=== PATIENT | male | born 1970 | race Caucasian/White ===

== ENCOUNTER → 2019-02-18 10:09 | Outpatient (CLI) | payer OTHER, SELFPAY ==
[2019-02-18 10:37] LABS: Add Manual Diff / Slide Review NO; Basophils Absolute Auto 100 /uL (0-100); Basophils Percent Auto 1.4 % (0-2); Eosinophils Absolute Auto 200 /uL (0-450); Eosinophils Percent Auto 3.3 % (2-4); Hematocrit 43.3 % (41-53); Lymphocytes Absolute Auto 2100 /uL (1100-4500); Lymphocytes Percent Auto 43.1 % (25-40); Mean Corpuscular HGB Conc 34.6 % (30-36); Mean Corpuscular Hemoglobin 31.4 PG (26-34); Monocytes Absolute Auto 400 /uL (0-900); Monocytes Percent Auto 8.8 % (3-14); Neutrophils Absolute Auto 2200 /uL (1500-7000); Neutrophils Percent Auto 43.4 % (50-75); Platelet Count 226 X10^3/uL (150-400); Red Blood Cell Count 4.76 X10^6/uL (4.5-5.9); Red Cell Distribution Width 13.8 % (11.6-14.8)
[2019-02-18 10:41] LABS: UR Morphine/Opiate cutoff 300 Negative (Negative); Ur Creatinine Normal (Normal); Ur Specific Gravity Normal (Normal); Urine Amphetamines Negative (Negative); Urine Barbiturates Negative (Negative); Urine Benzodiazepines Negative (Negative); Urine Cocaine Negative (Negative); Urine MDMA Negative (Negative); Urine Methadone Negative (Negative); Urine Methamphetamines Negative (Negative); Urine Oxycodone Negative (Negative); Urine Phencyclidine Negative (Negative); Urine Tetrahydrocannabinol Negative (Negative); Urine Tricyclic Antidepressant Negative (Negative); Urine pH Normal (Normal)
[2019-02-18 11:06] LABS: Alanine Aminotransferase 68 IU/L (<50); Albumin Globulin Ratio 1.9 (1.0-2.8); Alkaline Phosphatase 96 U/L (38-126); Aspartate Aminotransferase 36 IU/L (17-59); BUN Creatinine Ratio 23.3 (6-22); Bilirubin Total 0.7 mg/dL (0.2-1.3); Bilirubin Unconjugated 0.4 mg/dL (0.0-1.1); Blood Urea Nitrogen 21 mg/dL (9-20); Calcium 9.9 mg/dL (8.4-10.2); Carbon Dioxide 28 mmol/L (22-32); Chloride 102 mmol/L (98-107); Cholesterol 249 mg/dL (140-199); Estimated Glomerular Filt Rate > 60.0 mL/min (>60); Globulin 2.6 g/dL (1.7-4.1); Glucose 92 mg/dL (70-100); HDL Cholesterol 57 mg/dL (40-60); HEMOLYSIS < 15 (0-50); LDL Cholesterol Calculated 177 mg/dL (<100); Potassium 5.3 mmol/L (3.4-5.1); Sodium 141 mmol/L (137-145); Total Protein 7.6 g/dL (6.3-8.2); Triglycerides 73 mg/dL (35-150)
[2019-02-18 11:21] LABS: Free T4, Direct Thyroxine 0.91 ng/dL (0.78-2.19)
[2019-02-18 11:35] LABS: Thyroid Stimulating Hormone 1.15 uIU/mL (0.47-4.68)
== END ==
PROVIDERS: Visit Provider Psychiatry & Neurology Psychiatry
DX: F31.9 Bipolar disorder, unspecified (principal)
CPT/HCPCS: 36415; 80053; 80061; 80076; 80305; 84439; 84443; 85025

== ENCOUNTER → 2019-03-11 09:13 | Outpatient (CLI) | payer OTHER, MEDICAID, SELFPAY ==
[2019-03-11 11:18] LABS: BUN Creatinine Ratio 11.7 (6-22); Blood Urea Nitrogen 14 mg/dL (9-20); Calcium 9.6 mg/dL (8.4-10.2); Carbon Dioxide 29 mmol/L (22-32); Chloride 101 mmol/L (98-107); Estimated Glomerular Filt Rate > 60.0 mL/min (>60); Glucose 102 mg/dL (70-100); HEMOLYSIS < 15 (0-50); Potassium 4.5 mmol/L (3.4-5.1); Sodium 139 mmol/L (137-145)
[2019-03-11 11:35] LABS: Lithium < 0.2 mmol/L (0.6-1.2)
== END ==
PROVIDERS: PCP Student in an Organized Health Care Education/Training Program; Visit Provider Psychiatry & Neurology Psychiatry
DX: F31.30 Bipolar disorder, current episode depressed, mild or moderate severity, unspecified (principal)
CPT/HCPCS: 36415; 80048; 80178

== ENCOUNTER → 2019-05-15 15:24 | Outpatient (CLI) | payer OTHER, MEDICAID, SELFPAY ==
[2019-05-15 16:19] LABS: Blood Urea Nitrogen 15 mg/dL (9-20); Calcium 9.6 mg/dL (8.4-10.2); Carbon Dioxide 27 mmol/L (22-32); Chloride 103 mmol/L (98-107); Estimated Glomerular Filt Rate > 60.0 mL/min (>60); Glucose 92 mg/dL (70-100); HEMOLYSIS < 15 (0-50); Potassium 3.9 mmol/L (3.4-5.1); Sodium 140 mmol/L (137-145)
[2019-05-15 16:35] LABS: Lithium 0.2 mmol/L (0.6-1.2)
== END ==
PROVIDERS: PCP Student in an Organized Health Care Education/Training Program; Referring Provider Psychiatry & Neurology Psychiatry; Visit Provider Psychiatry & Neurology Psychiatry
DX: F31.30 Bipolar disorder, current episode depressed, mild or moderate severity, unspecified (principal)
CPT/HCPCS: 36415; 80048; 80178

== ENCOUNTER 2021-04-18 13:04 | Emergency (ER) | payer OTHER, MEDICAID, SELFPAY ==
[2021-04-18] VITALS (161 sets, daily range): BP systolic 55–147; BP diastolic 33–90; PULSE 62–104; RESP 6–27; TEMP 36–36.2; O2SAT 86–100; BMI 31.4
--- NOTE | 2021-04-18 13:20 | DI.RAD.S_ITS ---
PROCEDURE: XR CHEST 1V INDICATIONS: Altered mental status TECHNIQUE: One view of the chest was acquired. COMPARISON: None. FINDINGS: Surgical changes and devices: None. Lungs and pleura: Lungs are clear. No pleural effusions or pneumothorax. Mediastinum: Mediastinal contours appear normal. Heart size is normal. Bones and chest wall: No suspicious bony lesions. Overlying soft tissues appear unremarkable. IMPRESSION: No acute cardiopulmonary process demonstrated radiographically. Dictated by: Bran Martino M.D. on 04/18/2021 at 13:55 Approved by: Bran Martino M.D. on 04/18/2021 at 13:55
--- NOTE | 2021-04-18 13:21 | ED.AMS ---
HPI - Altered Mental Status <Janny Kellogg, DO - Last Filed: 04/21/21 13:13> General Chief Complaint: Altered Mental Status Stated Complaint: Found down Time Seen by Provider: 04/18/21 13:17 Source: EMS and old records reviewed Mode of arrival: EMS Limitations: altered mental status History of Present Illness HPI narrative: This is a 50-year-old male comes emergency department found down at his home. EMS was called contacted after well for check as patient had shown up for work for 4 days. Patient patient was found somnolent with agonal respirations. He received Narcan which had immediate improvement but not complete normalization of his mental status. He received an additional dose had a mild improvement. He has continued to be altered he will sometimes answer appropriately but other times is nonsensical. He was requiring O2 intermittently. Patient had 1 low blood pressure of 108. They do not have any medical history available. [place] and there were other individuals present who for milieu with him and states that he may have some drug history but they were unsure. Patient stated to the medics that he buys Percocet off the street and he had been taking this. He has home medications including aripiprazole, diazepam, trazodone, sertraline, propranolol and Adderall in their bottles and were brought with the patient. It is also noted that patient has a cocaine anonymous Flyer in his wallet. Patient himself is not really able to answer any questions he is not aware where he is. He does have a visit from February of 2021 with psychiatry which notes a history of bipolar disorder, panic disorder polysubstance for dependence currently in remission and attention deficit hyperactivity disorder. Related Data Home Medications Medication Instructions Recorded Confirmed aripiprazole 10 mg tablet 15 mg PO BEDTIME 04/18/21 04/18/21 naproxen 500 mg tablet 500 mg PO BID 04/18/21 04/18/21 tadalafil 10 mg tablet 10 mg PO DAILY PRN 04/18/21 04/18/21 Previous Rx's Medication Instructions Recorded trazodone 50 mg tablet 100 mg PO BEDTIME PRN #180 tab 08/05/20 propranolol 20 mg tablet 20 mg PO TID #90 tab 09/13/20 sertraline 100 mg tablet 150 mg PO DAILY #135 tab 03/01/21 dextroamphetamine-amphetamine 30 30 mg PO BID #60 tab 03/02/ mg tablet Allergies Allergy/AdvReac Type Severity Reaction Status Date / Time No Known Drug Allergies Allergy Verified 04/18/21 13:22 Review of Systems <Janny Kellogg DO - Last Filed: 04/21/21 13:13> Review of Systems ROS Unobtainable: All systems reviewed & are unremarkable except as noted in HPI and below Patient History <Janny Kellogg DO - Last Filed: 04/21/21 13:13> Medical History Attention deficit disorder predominant inattentive type Bipolar disorder current episode depressed Panic disorder with agoraphobia Substance use disorder Social History Smoking Status: Current every day smoker (vaping/quit cigarettes) Smoking Status: Current every day smoker (vaping/quit cigarettes) Exam <Janny Kellogg DO - Last Filed: 04/21/21 13:13> Narrative Exam Narrative: GEN: Male, alert, moaning patient appears to be in moderate distress. Patient does not follow commands. He does try to respond to questions but does not make sense. HEENT: Atraumatic, pupils are equal round reactive to light, extraocular movements are intact, nares are clear, TMs are clear with no fluid, there is no conjunctival pallor. Throat is clear without any exudates, erythema, tonsillar enlargement or uvular deviation, no facial droop. HEART: Regular rate and rhythm without murmur, clicks, rubs. Pulses are equal in upper and lower extremities LUNGS:Lungs clear to auscultation, no wheezes, rales, crackles, chest moves symmetrically ABD:bowel sounds normal, soft, non-tender, no guarding, rebound, rigidity, no masses noted, no hepatosplenomegaly :No CVA tenderness BACK: No cervical, thoracic or lumbar vertebral point tenderness. Patient does not participate in exam. MSCL: Non-tender, no muscle atrophy NEURO:CN 2-12 intact, sensation normal, reflexes 2/4 upper and lower extremities. SKIN: Patient has some erythema of the buttocks but no skin breakdown. No other skin changes appreciated other some erythema on the dorsum of the foot. Initial Vital Signs Initial Vital Signs: Vital Signs Temperature 97.1 F L 04/18/21 13:10 Pulse Rate 91 H 04/18/21 13:10 Respiratory Rate 24 04/18/21 13:10 Blood Pressure 114/67 04/18/21 13:10 Pulse Oximetry 90 L 04/18/21 13:10 <Prasanna Mas DO - Last Filed: 04/19/21 03:47> Initial Vital Signs Initial Vital Signs: Vital Signs Temperature 97.1 F L 04/18/21 13:10 Pulse Rate 91 H 04/18/21 13:10 Respiratory Rate 24 04/18/21 13:10 Blood Pressure 114/67 04/18/21 13:10 Pulse Oximetry 90 L 04/18/21 13:10 Procedures <Janny Kellogg DO - Last Filed: 04/21/21 13:13> Central Line Placement Right IJ: Time Out Performed: Yes Patient Placed on Monitor/Pulse Ox: Yes MD Prep: mask, gown and gloves Central Line Prep: Chlorhexidine scrub and sterile drapes applied Ultrasound Used for Placement: Yes Central Line Lumen Inserted: triple Post Procedure: sutured in place, good blood return, all ports aspirated, flushed, capped and sterile dressing applied Post Procedure X-Ray: tip of catheter in good position and no pneumothorax seen Patient Tolerated Procedure: Well Complications: none Intubation Time of Intubation: 15:24 Time out performed: Yes sedative: Ketamine Mg Given: 100 paralytic: Rocuronium Laryngoscope: fiber optic video scope (glidoscope) ET Tube Size: 7.5 ET Tube Uncuffed: No Tube Secured Depth (cm): 23 Tube Secured Location: teeth Tube Placement Confirmation: Visualized tube passing through cords, Equal breath sounds bilaterally, No breath sounds over epigastrium, Confirmation by capnometry and Chest Xray Patient Tolerated Procedure: No complications Intubation Complications: other Additional Comments: patient initially received etomidate and ketamine. Attempted intubation but patient had some laryngospasm. Patient was bagged. Rocuronium was given and patient was intubated without additional difficulty. Scores <Janny Kellogg DO - Last Filed: 04/21/21 13:13> GCS Malik coma scale eye opening: Spontaneous Malik coma scale verbal response: Confused Malik coma scale motor response: Localising Malik coma scale total score: 13 <Prasanna Lanker, DO - Last Filed: 04/19/21 03:47> GCS Malik coma scale total score: 13 Course <Janny Richards Bess, DO - Last Filed: 04/21/21 13:13> Orders Ordered: Discontinued Medications Albuterol (Albuterol 2.5 Mg/3 Ml Neb (Adult)) 2.5 mg INH NOW ONE Stop: 04/18/21 14:13 Last Admin: 04/18/21 19:19 Dose: Not Given Documented by: CHRISTY Chlorhexidine Gluconate (Chlorhexidine Gluconate 15 Ml Cup) 15 ml PO Q6HR ROSI Last Admin: 04/19/21 00:24 Dose: 15 ml Documented by: Admin: 04/18/21 19:23 Dose: Not Given Documented by: CHRISTY Sodium Chloride 9 ml/ (Epinephrine HCl 0.1 mg) 0 ml IV NOW ONE Stop: 04/18/21 21:00 Last Admin: 04/18/21 20:56 Dose: 1 ml Documented by: ESMER Dextrose (Dextrose 50 % In Water 25 Gm/50 Ml Syringe) 25 gm IV NOW ONE Stop: 04/18/21 14:13 Last Admin: 04/18/21 14:32 Dose: 25 gm Documented by: CHRISTY Etomidate (Etomidate 2 Mg/Ml 10 Ml Vial) 10 mg IV NOW ONE Stop: 04/18/21 14:57 Last Admin: 04/18/21 15:08 Dose: 10 mg Documented by: CHRISTY Fentanyl (Fentanyl 100 Mcg/2 Ml Inj) 50 mcg IV Q30MIN PRN PRN Reason: Pain, Severe (7-10) Last Admin: 04/18/21 16:46 Dose: 50 mcg Documented by: CHRISTY Fentanyl (Fentanyl 100 Mcg/2 Ml Inj) 100 mcg IV NOW ONE Stop: 04/18/21 17:35 Last Admin: 04/18/21 17:37 Dose: 100 mcg Documented by: CHRISTY Heparin Sodium (Porcine) (Heparin Flush (Cl/Picc/Mid-Line) 50 Unit/5 Ml Syringe) 50 unit IV PRN PRN PRN Reason: Flush Last Admin: 04/18/21 20:23 Dose: 50 unit Documented by: CHRISTY Sodium Chloride (Normal Saline 0.9%) 1,000 mls @ 1,000 mls/hr IV BOLUS ONE Stop: 04/18/21 14:17 Last Infusion: 04/18/21 16:14 Dose: 0 mls/hr Documented by: Admin: 04/18/21 13:45 Dose: 1,000 mls/hr Documented by: CHRISTY Sodium Chloride (Normal Saline 0.9%) 1,000 mls @ 1,000 mls/hr IV BOLUS ONE Stop: 04/18/21 15:11 Last Admin: 04/18/21 19:19 Dose: Not Given Documented by: CHRISTY Calcium Gluconate 9.3 meq/ (Sodium Chloride) 70 mls @ 140 mls/hr IV NOW ONE Stop: 04/18/21 14:41 Last Infusion: 04/18/21 16:43 Dose: 0 mls/hr Documented by: Admin: 04/18/21 15:55 Dose: 140 mls/hr Documented by: CHRISTY Propofol (Propofol) 1,000 mg in 100 mls @ 6.314 mls/hr IV TITRATE ROSI; Protocol Last Titration: 04/19/21 06:13 Dose: 25 mcg/kg/min, 15.785 mls/hr Documented by: Admin: 04/19/21 05:27 Dose: 25 mcg/kg/min, 15.785 mls/hr Documented by: Titration: 04/19/21 05:27 Dose: 25 mcg/kg/min, 15.785 mls/hr Documented by: Titration: 04/19/21 05:27 Dose: 25 mcg/kg/min, 15.785 mls/hr Documented by: Titration: 04/19/21 02:52 Dose: 25 mcg/kg/min, 15.785 mls/hr Documented by: Admin: 04/19/21 00:27 Dose: 30 mcg/kg/min, 18.942 mls/hr Documented by: Titration: 04/19/21 00:27 Dose: 30 mcg/kg/min, 18.942 mls/hr Documented by: Admin: 04/18/21 22:04 Dose: 30 mcg/kg/min, 18.942 mls/hr Documented by: Titration: 04/18/21 22:02 Dose: 30 mcg/kg/min, 18.942 mls/hr Documented by: Titration: 04/18/21 21:13 Dose: 40 mcg/kg/min, 25.256 mls/hr Documented by: Titration: 04/18/21 20:57 Dose: 0 mcg/kg/min, 0 mls/hr Documented by: Titration: 04/18/21 19:39 Dose: 40 mcg/kg/min, 25.256 mls/hr Documented by: Titration: 04/18/21 17:02 Dose: 30 mcg/kg/min, 18.942 mls/hr Documented by: Titration: 04/18/21 16:34 Dose: 20 mcg/kg/min, 12.628 mls/hr Documented by: Admin: 04/18/21 15:30 Dose: 10 mcg/kg/min, 6.314 mls/hr Documented by: CHRISTY Sodium Chloride (Normal Saline 0.9%) 1,000 mls @ 75 mls/hr IV BOLUS ONE Stop: 04/19/21 05:11 Last Infusion: 04/19/21 04:31 Dose: 0 mls/hr Documented by: Admin: 04/18/21 16:11 Dose: 75 mls/hr Documented by: CHRISTY Sodium Chloride (Normal Saline 0.9%) 1,000 mls @ 1,000 mls/hr IV BOLUS ONE Stop: 04/18/21 17:06 Last Infusion: 04/18/21 17:13 Dose: 0 mls/hr Documented by: Admin: 04/18/21 16:14 Dose: 1,000 mls/hr Documented by: CHRISTY Sodium Chloride (Normal Saline 0.9%) 1,000 mls @ 250 mls/hr IV CONT ROSI Last Infusion: 04/18/21 21:56 Dose: 0 mls/hr Documented by: Admin: 04/18/21 16:57 Dose: 250 mls/hr Documented by: CHRISTY Fentanyl 1,000 mcg/ Dextrose 250 mls @ 26.308 mls/hr IV TITRATE ROSI; Protocol Last Titration: 04/19/21 06:15 Dose: 1 mcg/kg/hr, 26.308 mls/hr Documented by: Admin: 04/19/21 04:47 Dose: 1 mcg/kg/hr, 26.308 mls/hr Documented by: Titration: 04/19/21 04:33 Dose: 1 mcg/kg/hr, 26.308 mls/hr Documented by: Titration: 04/19/21 03:28 Dose: 1 mcg/kg/hr, 26.308 mls/hr Documented by: Admin: 04/18/21 23:15 Dose: 2 mcg/kg/hr, 52.617 mls/hr Documented by: Titration: 04/18/21 23:08 Dose: 2 mcg/kg/hr, 52.617 mls/hr Documented by: Titration: 04/18/21 23:05 Dose: 2 mcg/kg/hr, 52.617 mls/hr Documented by: Titration: 04/18/21 22:35 Dose: 1 mcg/kg/hr, 26.308 mls/hr Documented by: Titration: 04/18/21 19:39 Dose: 2 mcg/kg/hr, 52.617 mls/hr Documented by: Titration: 04/18/21 17:59 Dose: 1.5 mcg/kg/hr, 39.462 mls/hr Documented by: Admin: 04/18/21 17:25 Dose: 1 mcg/kg/hr, 26.308 mls/hr Documented by: CHRISTY dexmedeTOMIDine in 0.9 % NaCL (Precedex) 400 mcg in 100 mls @ 5.262 mls/hr IV TITRATE ROSI; Protocol Last Titration: 04/19/21 06:16 Dose: 0.7 mcg/kg/hr, 18.416 mls/hr Documented by: Admin: 04/19/21 05:28 Dose: 0.7 mcg/kg/hr, 18.416 mls/hr Documented by: Titration: 04/19/21 05:28 Dose: 0.7 mcg/kg/hr, 18.416 mls/hr Documented by: Titration: 04/19/21 02:51 Dose: 0.7 mcg/kg/hr, 18.416 mls/hr Documented by: Admin: 04/19/21 00:25 Dose: 0.6 mcg/kg/hr, 15.785 mls/hr Documented by: Titration: 04/19/21 00:01 Dose: 0.6 mcg/kg/hr, 15.785 mls/hr Documented by: Titration: 04/18/21 23:05 Dose: 0.6 mcg/kg/hr, 15.785 mls/hr Documented by: Titration: 04/18/21 22:03 Dose: 0.4 mcg/kg/hr, 10.523 mls/hr Documented by: Titration: 04/18/21 20:49 Dose: 0.2 mcg/kg/hr, 5.262 mls/hr Documented by: Titration: 04/18/21 20:23 Dose: 5.97 mcg/kg/hr, 157 mls/hr Documented by: Admin: 04/18/21 20:22 Dose: 0.2 mcg/kg/hr, 5.262 mls/hr Documented by: CHRISTY Sodium Chloride (Normal Saline 0.9%) 1,000 mls @ 1,000 mls/hr IV BOLUS ONE Stop: 04/18/21 21:53 Last Infusion: 04/18/21 22:19 Dose: 0 mls/hr Documented by: Infusion: 04/18/21 22:00 Dose: 1,000 mls/hr Documented by: Infusion: 04/18/21 21:12 Dose: 0 mls/hr Documented by: Admin: 04/18/21 20:58 Dose: 1,000 mls/hr Documented by: CHRISTY NOREPINEPHRINE BITARTRATE/D5W (Levophed) 4 mg in 250 mls @ 30 mls/hr IV TITRATE ROSI; Protocol Last Titration: 04/19/21 06:17 Dose: 4 mcg/min, 15 mls/hr Documented by: Titration: 04/19/21 04:45 Dose: 3 mcg/min, 11.25 mls/hr Documented by: Titration: 04/19/21 01:15 Dose: 2 mcg/min, 7.5 mls/hr Documented by: Titration: 04/19/21 00:30 Dose: 2.5 mcg/min, 9.375 mls/hr Documented by: Titration: 04/18/21 23:42 Dose: 3 mcg/min, 11.25 mls/hr Documented by: Titration: 04/18/21 23:38 Dose: 2 mcg/min, 7.5 mls/hr Documented by: Titration: 04/18/21 21:13 Dose: 4 mcg/min, 15 mls/hr Documented by: Admin: 04/18/21 21:07 Dose: 8 mcg/min, 30 mls/hr Documented by: CHRISTY Sodium Chloride (Normal Saline 0.9%) 1,000 mls @ 200 mls/hr IV CONT ROSI Last Infusion: 04/19/21 06:17 Dose: 200 mls/hr Documented by: Admin: 04/19/21 02:50 Dose: 200 mls/hr Documented by: Infusion: 04/19/21 02:50 Dose: 200 mls/hr Documented by: Admin: 04/18/21 22:19 Dose: 200 mls/hr Documented by: ESMER Vancomycin HCl/Dextrose (Vancomycin) 2,000 mg in 400 mls @ 200 mls/hr IV NOW ONE Stop: 04/19/21 00:55 Last Infusion: 04/19/21 02:50 Dose: 0 mls/hr Documented by: Infusion: 04/18/21 23:54 Dose: 133 mls/hr Documented by: Admin: 04/18/21 23:53 Dose: 200 mls/hr Documented by: ESMER Cefepime HCl 2 gm/ Sodium (Chloride) 100 mls @ 200 mls/hr IV NOW ONE Stop: 04/18/21 22:59 Last Infusion: 04/19/21 00:23 Dose: 0 mls/hr Documented by: Admin: 04/18/21 23:51 Dose: 200 mls/hr Documented by: ESMER Insulin Human Regular (Insulin Regular 100 Unit/Ml 3 Ml Vial) 10 unit IV NOW ONE Stop: 04/18/21 14:13 Last Admin: 04/18/21 14:33 Dose: 10 unit Documented by: CHRISTY Cosigned by: JEFF Midazolam HCl (Midazolam 5 Mg/Ml Vial) 10 mg IV NOW ONE Stop: 04/18/21 16:50 Last Admin: 04/18/21 16:53 Dose: 10 mg Documented by: CHRISTY Midazolam HCl (Midazolam 5 Mg/5 Ml Vial) 5 mg IV Q1HR PRN PRN Reason: sedation Midazolam HCl (Midazolam 5 Mg/5 Ml Vial) 10 mg IV Q1HR PRN PRN Reason: sedation Midazolam HCl (Midazolam 2 Mg/2 Ml Vial) 10 mg IV Q1HR PRN PRN Reason: Agitation Stop: 04/20/21 19:53 Naloxone HCl (Naloxone 0.4 Mg/Ml Vial) 0.2 mg IV Q2MIN PRN PRN Reason: Opiate Reversal Last Admin: 04/18/21 14:28 Dose: 0.2 mg Documented by: CHRISTY Propofol (Propofol 200 Mg/20 Ml Vial) 50 mg IV NOW ONE Stop: 04/18/21 15:14 Last Admin: 04/18/21 15:19 Dose: 50 mg Documented by: CHRISTY Rocuronium [place] (Rocuronium 50 Mg/5 Ml Inj) 100 mg IV NOW ONE Stop: 04/18/21 15:13 Last Admin: 04/18/21 15:18 Dose: 100 mg Documented by: CHRISTY Rocuronium [place] (Rocuronium 100 Mg/10 Ml Vial) 100 mg IV NOW ONE Stop: 04/18/21 17:53 Last Admin: 04/18/21 18:08 Dose: 100 mg Documented by: CHRISTY Sodium Bicarbonate (Sodium Bicarb 8.4% Syringe) 50 meq IV NOW ONE Stop: 04/18/21 14:13 Last Admin: 04/18/21 14:32 Dose: 50 meq Documented by: CHRISTY Sodium Polystyrene Sulfonate (Sodium Polystyrene Sulfon/Sorb 15 Gm/60 Ml Cup) 15 gm PO NOW ONE Stop: 04/18/21 14:13 Last Admin: 04/18/21 17:03 Dose: Not Given Documented by: CHRISTY Reevaluation(s) Reevaluation #1: Patient is able to he took something but does not give additional information. Time: 14:06 Reevaluation #2: Patient had worsening mentation, Narcan was repeated without any improvement. Decision was made to intubate patient for airway protection. Head CT also shows ischemic changes particular the cerebellar region. Consultations Consultation #1: Dr. Clark, tele-industrial organization manager. Discussed recommend continue with volume. Discussed if bicarb would be appropriate with his rhabdo. At this point if he is making urine could possibly hold off on bicarb drip. We discussed transferring more for neurologic consultation this patient either had potentially anoxic injury from possible overdose versus stroke causing him to have his rhabdo, acute kidney injury and hyperkalemia. Dr. Clark is happy to follow with the patient if he ultimately stays here. Time: 16:18 Consultation #2: [facility], neurology. Bronson Clifford with neurology review images. He will call back and discussed current plan. They are very short of neuro ICU beds at this time. Time: 16:55 Consultation #3: Dr. Sandy myrick from [facility], like CT angiography if available. She states they tend to avoid paralytics for sedation, would prefer a Precedex, propofol and fentanyl avoid benzos a possible but may be needed for any withdrawal symptoms. She would ask if we can chat with Nephrology to discuss of would be appropriate to CTA at this time verses if we should wait. Additional Consultation(s): Nephrology, Dr. Alvarado. [facility]. Or he recommends this patient is renal function continued to improve would be appropriate to CT angio he feels there is some risk that patient could have worsening renal function but if he is having good urine output would be appropriate. We discussed repeating his electrolytes, creatinine. If his potassium and renal function are continuing to improve he continues to have good urine output CT angiography would be appropriate to obtain. We also discussed at this time okay to hold bicarb drip. Vital Signs Vital signs: Vital Signs - 8 hr 04/18/21 19:50 04/18/21 19:55 04/18/21 20:00 Temperature Pulse Rate 94 H 97 H 97 H Respiratory Rate 13 15 14 Blood Pressure 119/66 107/61 102/60 Pulse Oximetry 96 95 96 04/18/21 20:05 04/18/21 20:10 04/18/21 20:15 Temperature Pulse Rate 97 H 96 H 96 H Respiratory Rate 14 15 15 Blood Pressure 103/60 104/61 104/63 Pulse Oximetry 96 96 96 04/18/21 20:20 04/18/21 20:25 04/18/21 20:30 Temperature Pulse Rate 95 H 94 H 94 H Respiratory Rate 14 15 16 Blood Pressure 102/64 107/64 115/66 Pulse Oximetry 96 96 97 04/18/21 20:35 04/18/21 20:36 04/18/21 20:38 Temperature 97.1 F L Pulse Rate 94 H 94 H 94 H Respiratory Rate 15 15 14 Blood Pressure 111/67 Pulse Oximetry 98 97 97 04/18/21 20:40 04/18/21 20:42 04/18/21 20:44 Temperature Pulse Rate 91 H 91 H 91 H Respiratory Rate 15 12 13 Blood Pressure 113/68 Pulse Oximetry 94 93 93 04/18/21 20:45 04/18/21 20:46 04/18/21 20:48 Temperature Pulse Rate 91 H 90 90 Respiratory Rate 10 L 13 14 Blood Pressure 85/53 L 84/51 L Pulse Oximetry 94 95 94 04/18/21 20:50 04/18/21 20:52 04/18/21 20:54 Temperature Pulse Rate 88 88 88 Respiratory Rate 14 14 13 Blood Pressure 70/43 L 57/33 L Pulse Oximetry 93 93 92 04/18/21 20:55 04/18/21 20:56 04/18/21 20:58 Temperature Pulse Rate 88 88 87 Respiratory Rate 13 14 15 Blood Pressure 56/37 L 55/38 L Pulse Oximetry 92 93 92 04/18/21 21:00 04/18/21 21:02 04/18/21 21:04 Temperature Pulse Rate 89 87 87 Respiratory Rate 13 14 12 Blood Pressure 70/43 L Pulse Oximetry 92 97 96 04/18/21 21:05 04/18/21 21:06 04/18/21 21:08 Temperature Pulse Rate 87 87 79 Respiratory Rate 15 16 16 Blood Pressure 70/41 L 63/47 L Pulse Oximetry 95 94 94 04/18/21 21:09 04/18/21 21:10 04/18/21 21:12 Temperature Pulse Rate 73 68 62 Respiratory Rate 15 16 16 Blood Pressure 111/73 127/76 Pulse Oximetry 98 97 97 04/18/21 21:14 04/18/21 21:15 04/18/21 21:16 Temperature Pulse Rate 63 70 74 Respiratory Rate 16 16 16 Blood Pressure 141/80 H Pulse Oximetry 98 98 98 04/18/21 21:18 04/18/21 21:20 01/10/22 21:22 Temperature Pulse Rate 79 79 79 Respiratory Rate 16 16 16 Blood Pressure 134/76 Pulse Oximetry 98 98 98 04/18/21 21:24 04/18/21 21:25 04/18/21 21:26 Temperature Pulse Rate 81 81 82 Respiratory Rate 16 16 16 Blood Pressure 124/69 Pulse Oximetry 98 99 99 04/18/21 21:27 04/18/21 21:28 04/18/21 21:30 Temperature Pulse Rate 81 79 80 Respiratory Rate 16 16 12 Blood Pressure 123/69 122/69 Pulse Oximetry 99 100 99 04/18/21 21:32 04/18/21 21:34 04/18/21 21:36 Temperature Pulse Rate 80 77 79 Respiratory Rate 16 16 16 Blood Pressure 118/75 Pulse Oximetry 99 99 99 04/18/21 21:38 04/18/21 21:39 04/18/21 21:40 Temperature Pulse Rate 78 79 79 Respiratory Rate 16 16 16 Blood Pressure 122/74 Pulse Oximetry 99 98 98 04/18/21 21:42 04/18/21 21:43 04/18/21 21:44 Temperature Pulse Rate 82 82 82 Respiratory Rate 16 16 16 Blood Pressure 119/71 Pulse Oximetry 99 99 98 04/18/21 21:45 04/18/21 21:46 04/18/21 21:48 Temperature Pulse Rate 81 79 83 Respiratory Rate 20 16 16 Blood Pressure 123/75 Pulse Oximetry 96 96 04/18/21 21:50 04/18/21 21:52 04/18/21 22:10 Temperature Pulse Rate 84 84 80 Respiratory Rate 14 16 22 Blood Pressure 106/56 L 119/59 L Pulse Oximetry 99 99 96 04/18/21 22:15 04/18/21 22:20 04/18/21 22:25 Temperature Pulse Rate 81 80 80 Respiratory Rate Blood Pressure 121/62 120/64 123/64 Pulse Oximetry 97 97 97 04/18/21 22:30 04/18/21 22:35 04/18/21 22:40 Temperature Pulse Rate 80 79 78 Respiratory Rate Blood Pressure 124/65 124/65 126/67 Pulse Oximetry 97 96 95 04/18/21 22:45 04/18/21 22:50 04/18/21 22:55 Temperature Pulse Rate 78 77 78 Respiratory Rate Blood Pressure 124/68 125/71 125/72 Pulse Oximetry 95 95 94 04/18/21 23:00 04/18/21 23:05 04/18/21 23:10 Temperature Pulse Rate 77 77 77 Respiratory Rate 22 22 22 Blood Pressure 126/72 126/74 126/74 Pulse Oximetry 94 93 94 04/18/21 23:12 04/18/21 23:15 04/18/21 23:20 Temperature Pulse Rate 77 76 77 Respiratory Rate 22 22 22 Blood Pressure 127/76 128/76 127/75 Pulse Oximetry 93 93 94 04/18/21 23:25 04/18/21 23:30 04/18/21 23:35 Temperature Pulse Rate 77 78 83 Respiratory Rate 22 22 22 Blood Pressure 128/76 127/76 104/58 L Pulse Oximetry 96 97 96 04/18/21 23:40 04/18/21 23:41 04/18/21 23:45 Temperature Pulse Rate 83 83 83 Respiratory Rate 22 22 22 Blood Pressure 88/55 L 89/50 L 100/59 L Pulse Oximetry 96 96 97 04/18/21 23:50 04/18/21 23:55 04/19/21 00:00 Temperature Pulse Rate 83 83 83 Respiratory Rate 22 22 22 Blood Pressure 103/60 102/58 L 103/57 L Pulse Oximetry 96 96 96 04/19/21 00:05 04/19/21 00:10 04/19/21 00:15 Temperature 97.1 F L Pulse Rate 84 83 84 Respiratory Rate 22 20 17 Blood Pressure 99/54 L 96/53 L 96/52 L Pulse Oximetry 97 97 97 04/19/21 00:20 04/19/21 00:25 04/19/21 00:30 Temperature Pulse Rate 84 84 84 Respiratory Rate 22 22 16 Blood Pressure 97/55 L 97/52 L 95/52 L Pulse Oximetry 97 97 97 04/19/21 00:35 04/19/21 00:40 04/19/21 00:45 Temperature Pulse Rate 84 84 84 Respiratory Rate 24 24 24 Blood Pressure 94/51 L 97/56 L 97/52 L Pulse Oximetry 97 97 97 04/19/21 00:50 04/19/21 00:55 04/19/21 01:00 Temperature Pulse Rate 84 85 85 Respiratory Rate 24 24 24 Blood Pressure 98/57 L 97/52 L 100/56 L Pulse Oximetry 98 98 97 04/19/21 01:05 04/19/21 01:10 04/19/21 01:15 Temperature Pulse Rate 85 85 85 Respiratory Rate 24 24 24 Blood Pressure 100/58 L 100/59 L 102/56 L Pulse Oximetry 97 97 97 04/19/21 01:20 04/19/21 01:22 04/19/21 01:24 Temperature 97.1 F L Pulse Rate 85 85 84 Respiratory Rate 24 24 24 Blood Pressure 99/54 L Pulse Oximetry 98 98 98 04/19/21 01:25 04/19/21 01:26 04/19/21 01:28 Temperature Pulse Rate 84 84 84 Respiratory Rate 24 Blood Pressure 96/52 L Pulse Oximetry 98 98 98 04/19/21 01:30 04/19/21 01:32 04/19/21 01:34 Temperature Pulse Rate 84 84 84 Respiratory Rate 24 24 24 Blood Pressure 93/55 L Pulse Oximetry 98 98 98 04/19/21 01:35 04/19/21 01:36 04/19/21 01:38 Temperature Pulse Rate 84 84 84 Respiratory Rate 24 24 24 Blood Pressure 92/55 L Pulse Oximetry 98 98 98 04/19/21 01:40 04/19/21 01:42 04/19/21 01:44 Temperature Pulse Rate 84 84 84 Respiratory Rate 24 Blood Pressure 93/51 L Pulse Oximetry 98 98 98 04/19/21 01:45 04/19/21 01:46 04/19/21 01:48 Temperature Pulse Rate 84 85 85 Respiratory Rate Blood Pressure 95/50 L Pulse Oximetry 98 98 98 04/19/21 01:50 04/19/21 01:52 04/19/21 01:54 Temperature Pulse Rate 84 84 85 Respiratory Rate Blood Pressure 96/54 L Pulse Oximetry 98 98 98 04/19/21 01:55 04/19/21 01:56 04/19/21 01:58 Temperature Pulse Rate 85 85 85 Respiratory Rate Blood Pressure 95/51 L Pulse Oximetry 98 98 98 04/19/21 02:00 04/19/21 02:02 04/19/21 02:04 Temperature Pulse Rate 84 84 84 Respiratory Rate Blood Pressure 98/55 L Pulse Oximetry 98 98 98 04/19/21 02:05 Temperature Pulse Rate 84 Respiratory Rate Blood Pressure 95/50 L Pulse Oximetry 98 <Prasanna Mas, DO - Last Filed: 04/19/21 03:47> Orders Ordered: Discontinued Medications Albuterol (Albuterol 2.5 Mg/3 Ml Neb (Adult)) 2.5 mg INH NOW ONE Stop: 04/18/21 14:13 Last Admin: 04/18/21 19:19 Dose: Not Given Documented by: CHRISTY Chlorhexidine Gluconate (Chlorhexidine Gluconate 15 Ml Cup) 15 ml PO Q6HR ROSI Last Admin: 04/19/21 00:24 Dose: 15 ml Documented by: Admin: 04/18/21 19:23 Dose: Not Given Documented by: CHRISTY Sodium Chloride 9 ml/ (Epinephrine HCl 0.1 mg) 0 ml IV NOW ONE Stop: 04/18/21 21:00 Last Admin: 04/18/21 20:56 Dose: 1 ml Documented by: ESMER Dextrose (Dextrose 50 % In Water 25 Gm/50 Ml Syringe) 25 gm IV NOW ONE Stop: 04/18/21 14:13 Last Admin: 04/18/21 14:32 Dose: 25 gm Documented by: CHRISTY Etomidate (Etomidate 2 Mg/Ml 10 Ml Vial) 10 mg IV NOW ONE Stop: 04/18/21 14:57 Last Admin: 04/18/21 15:08 Dose: 10 mg Documented by: CHRISTY Fentanyl (Fentanyl 100 Mcg/2 Ml Inj) 50 mcg IV Q30MIN PRN PRN Reason: Pain, Severe (7-10) Last Admin: 04/18/21 16:46 Dose: 50 mcg Documented by: CHRISTY Fentanyl (Fentanyl 100 Mcg/2 Ml Inj) 100 mcg IV NOW ONE Stop: 04/18/21 17:35 Last Admin: 04/18/21 17:37 Dose: 100 mcg Documented by: CHRISTY Heparin Sodium (Porcine) (Heparin Flush (Cl/Picc/Mid-Line) 50 Unit/5 Ml Syringe) 50 unit IV PRN PRN PRN Reason: Flush Last Admin: 04/18/21 20:23 Dose: 50 unit Documented by: CHRISTY Sodium Chloride (Normal Saline 0.9%) 1,000 mls @ 1,000 mls/hr IV BOLUS ONE Stop: 04/18/21 14:17 Last Infusion: 04/18/21 16:14 Dose: 0 mls/hr Documented by: Admin: 04/18/21 13:45 Dose: 1,000 mls/hr Documented by: CHRISTY Sodium Chloride (Normal Saline 0.9%) 1,000 mls @ 1,000 mls/hr IV BOLUS ONE Stop: 04/18/21 15:11 Last Admin: 04/18/21 19:19 Dose: Not Given Documented by: CHRISTY Calcium Gluconate 9.3 meq/ (Sodium Chloride) 70 mls @ 140 mls/hr IV NOW ONE Stop: 04/18/21 14:41 Last Infusion: 04/18/21 16:43 Dose: 0 mls/hr Documented by: Admin: 04/18/21 15:55 Dose: 140 mls/hr Documented by: CHRISTY Propofol (Propofol) 1,000 mg in 100 mls @ 6.314 mls/hr IV TITRATE ROSI; Protocol Last Titration: 04/19/21 06:13 Dose: 25 mcg/kg/min, 15.785 mls/hr Documented by: Admin: 04/19/21 05:27 Dose: 25 mcg/kg/min, 15.785 mls/hr Documented by: Titration: 04/19/21 05:27 Dose: 25 mcg/kg/min, 15.785 mls/hr Documented by: Titration: 04/19/21 05:27 Dose: 25 mcg/kg/min, 15.785 mls/hr Documented by: Titration: 04/19/21 02:52 Dose: 25 mcg/kg/min, 15.785 mls/hr Documented by: Admin: 04/19/21 00:27 Dose: 30 mcg/kg/min, 18.942 mls/hr Documented by: Titration: 04/19/21 00:27 Dose: 30 mcg/kg/min, 18.942 mls/hr Documented by: Admin: 04/18/21 22:04 Dose: 30 mcg/kg/min, 18.942 mls/hr Documented by: Titration: 04/18/21 22:02 Dose: 30 mcg/kg/min, 18.942 mls/hr Documented by: Titration: 04/18/21 21:13 Dose: 40 mcg/kg/min, 25.256 mls/hr Documented by: Titration: 04/18/21 20:57 Dose: 0 mcg/kg/min, 0 mls/hr Documented by: Titration: 04/18/21 19:39 Dose: 40 mcg/kg/min, 25.256 mls/hr Documented by: Titration: 04/18/21 17:02 Dose: 30 mcg/kg/min, 18.942 mls/hr Documented by: Titration: 04/18/21 16:34 Dose: 20 mcg/kg/min, 12.628 mls/hr Documented by: Admin: 04/18/21 15:30 Dose: 10 mcg/kg/min, 6.314 mls/hr Documented by: CHRISTY Sodium Chloride (Normal Saline 0.9%) 1,000 mls @ 75 mls/hr IV BOLUS ONE Stop: 04/19/21 05:11 Last Infusion: 04/19/21 04:31 Dose: 0 mls/hr Documented by: Admin: 04/18/21 16:11 Dose: 75 mls/hr Documented by: CHRISTY Sodium Chloride (Normal Saline 0.9%) 1,000 mls @ 1,000 mls/hr IV BOLUS ONE Stop: 04/18/21 17:06 Last Infusion: 04/18/21 17:13 Dose: 0 mls/hr Documented by: Admin: 04/18/21 16:14 Dose: 1,000 mls/hr Documented by: CHRISTY Sodium Chloride (Normal Saline 0.9%) 1,000 mls @ 250 mls/hr IV CONT ROSI Last Infusion: 04/18/21 21:56 Dose: 0 mls/hr Documented by: Admin: 04/18/21 16:57 Dose: 250 mls/hr Documented by: CHRISTY Fentanyl 1,000 mcg/ Dextrose 250 mls @ 26.308 mls/hr IV TITRATE ROSI; Protocol Last Titration: 04/19/21 06:15 Dose: 1 mcg/kg/hr, 26.308 mls/hr Documented by: Admin: 04/19/21 04:47 Dose: 1 mcg/kg/hr, 26.308 mls/hr Documented by: Titration: 04/19/21 04:33 Dose: 1 mcg/kg/hr, 26.308 mls/hr Documented by: Titration: 04/19/21 03:28 Dose: 1 mcg/kg/hr, 26.308 mls/hr Documented by: Admin: 04/18/21 23:15 Dose: 2 mcg/kg/hr, 52.617 mls/hr Documented by: Titration: 04/18/21 23:08 Dose: 2 mcg/kg/hr, 52.617 mls/hr Documented by: Titration: 04/18/21 23:05 Dose: 2 mcg/kg/hr, 52.617 mls/hr Documented by: Titration: 04/18/21 22:35 Dose: 1 mcg/kg/hr, 26.308 mls/hr Documented by: Titration: 04/18/21 19:39 Dose: 2 mcg/kg/hr, 52.617 mls/hr Documented by: Titration: 04/18/21 17:59 Dose: 1.5 mcg/kg/hr, 39.462 mls/hr Documented by: Admin: 04/18/21 17:25 Dose: 1 mcg/kg/hr, 26.308 mls/hr Documented by: CHRISTY dexmedeTOMIDine in 0.9 % NaCL (Precedex) 400 mcg in 100 mls @ 5.262 mls/hr IV TITRATE ROSI; Protocol Last Titration: 04/19/21 06:16 Dose: 0.7 mcg/kg/hr, 18.416 mls/hr Documented by: Admin: 04/19/21 05:28 Dose: 0.7 mcg/kg/hr, 18.416 mls/hr Documented by: Titration: 04/19/21 05:28 Dose: 0.7 mcg/kg/hr, 18.416 mls/hr Documented by: Titration: 04/19/21 02:51 Dose: 0.7 mcg/kg/hr, 18.416 mls/hr Documented by: Admin: 04/19/21 00:25 Dose: 0.6 mcg/kg/hr, 15.785 mls/hr Documented by: Titration: 04/19/21 00:01 Dose: 0.6 mcg/kg/hr, 15.785 mls/hr Documented by: Titration: 04/18/21 23:05 Dose: 0.6 mcg/kg/hr, 15.785 mls/hr Documented by: Titration: 04/18/21 22:03 Dose: 0.4 mcg/kg/hr, 10.523 mls/hr Documented by: Titration: 04/18/21 20:49 Dose: 0.2 mcg/kg/hr, 5.262 mls/hr Documented by: Titration: 04/18/21 20:23 Dose: 5.97 mcg/kg/hr, 157 mls/hr Documented by: Admin: 04/18/21 20:22 Dose: 0.2 mcg/kg/hr, 5.262 mls/hr Documented by: CHRISTY Sodium Chloride (Normal Saline 0.9%) 1,000 mls @ 1,000 mls/hr IV BOLUS ONE Stop: 04/18/21 21:53 Last Infusion: 04/18/21 22:19 Dose: 0 mls/hr Documented by: Infusion: 04/18/21 22:00 Dose: 1,000 mls/hr Documented by: Infusion: 04/18/21 21:12 Dose: 0 mls/hr Documented by: Admin: 04/18/21 20:58 Dose: 1,000 mls/hr Documented by: CHRISTY NOREPINEPHRINE BITARTRATE/D5W (Levophed) 4 mg in 250 mls @ 30 mls/hr IV TITRATE ROSI; Protocol Last Titration: 04/19/21 06:17 Dose: 4 mcg/min, 15 mls/hr Documented by: Titration: 04/19/21 04:45 Dose: 3 mcg/min, 11.25 mls/hr Documented by: Titration: 04/19/21 01:15 Dose: 2 mcg/min, 7.5 mls/hr Documented by: Titration: 04/19/21 00:30 Dose: 2.5 mcg/min, 9.375 mls/hr Documented by: Titration: 04/18/21 23:42 Dose: 3 mcg/min, 11.25 mls/hr Documented by: Titration: 04/18/21 23:38 Dose: 2 mcg/min, 7.5 mls/hr Documented by: Titration: 04/18/21 21:13 Dose: 4 mcg/min, 15 mls/hr Documented by: Admin: 04/18/21 21:07 Dose: 8 mcg/min, 30 mls/hr Documented by: CHRISTY Sodium Chloride (Normal Saline 0.9%) 1,000 mls @ 200 mls/hr IV CONT ROSI Last Infusion: 04/19/21 06:17 Dose: 200 mls/hr Documented by: Admin: 04/19/21 02:50 Dose: 200 mls/hr Documented by: Infusion: 04/19/21 02:50 Dose: 200 mls/hr Documented by: Admin: 04/18/21 22:19 Dose: 200 mls/hr Documented by: ESMER Vancomycin HCl/Dextrose (Vancomycin) 2,000 mg in 400 mls @ 200 mls/hr IV NOW ONE Stop: 04/19/21 00:55 Last Infusion: 04/19/21 02:50 Dose: 0 mls/hr Documented by: Infusion: 04/18/21 23:54 Dose: 133 mls/hr Documented by: Admin: 04/18/21 23:53 Dose: 200 mls/hr Documented by: ESMER Cefepime HCl 2 gm/ Sodium (Chloride) 100 mls @ 200 mls/hr IV NOW ONE Stop: 04/18/21 22:59 Last Infusion: 04/19/21 00:23 Dose: 0 mls/hr Documented by: Admin: 04/18/21 23:51 Dose: 200 mls/hr Documented by: ESMER Insulin Human Regular (Insulin Regular 100 Unit/Ml 3 Ml Vial) 10 unit IV NOW ONE Stop: 04/18/21 14:13 Last Admin: 04/18/21 14:33 Dose: 10 unit Documented by: CHRISTY Cosigned by: JEFF Midazolam HCl (Midazolam 5 Mg/Ml Vial) 10 mg IV NOW ONE Stop: 04/18/21 16:50 Last Admin: 04/18/21 16:53 Dose: 10 mg Documented by: CHRISTY Midazolam HCl (Midazolam 5 Mg/5 Ml Vial) 5 mg IV Q1HR PRN PRN Reason: sedation Midazolam HCl (Midazolam 5 Mg/5 Ml Vial) 10 mg IV Q1HR PRN PRN Reason: sedation Midazolam HCl (Midazolam 2 Mg/2 Ml Vial) 10 mg IV Q1HR PRN PRN Reason: Agitation Stop: 04/20/21 19:53 Naloxone HCl (Naloxone 0.4 Mg/Ml Vial) 0.2 mg IV Q2MIN PRN PRN Reason: Opiate Reversal Last Admin: 04/18/21 14:28 Dose: 0.2 mg Documented by: CHRISTY Propofol (Propofol 200 Mg/20 Ml Vial) 50 mg IV NOW ONE Stop: 04/18/21 15:14 Last Admin: 04/18/21 15:19 Dose: 50 mg Documented by: CHRISTY Rocuronium [place] (Rocuronium 50 Mg/5 Ml Inj) 100 mg IV NOW ONE Stop: 04/18/21 15:13 Last Admin: 04/18/21 15:18 Dose: 100 mg Documented by: CHRISTY Rocuronium [place] (Rocuronium 100 Mg/10 Ml Vial) 100 mg IV NOW ONE Stop: 04/18/21 17:53 Last Admin: 04/18/21 18:08 Dose: 100 mg Documented by: CHRISTY Sodium Bicarbonate (Sodium Bicarb 8.4% Syringe) 50 meq IV NOW ONE Stop: 04/18/21 14:13 Last Admin: 04/18/21 14:32 Dose: 50 meq Documented by: CHRISTY Sodium Polystyrene Sulfonate (Sodium Polystyrene Sulfon/Sorb 15 Gm/60 Ml Cup) 15 gm PO NOW ONE Stop: 04/18/21 14:13 Last Admin: 04/18/21 17:03 Dose: Not Given Documented by: CHRISTY Vital Signs Vital signs: Vital Signs - 8 hr 04/18/21 19:50 04/18/21 19:55 04/18/21 20:00 Temperature Pulse Rate 94 H 97 H 97 H Respiratory Rate 13 15 14 Blood Pressure 119/66 107/61 102/60 Pulse Oximetry 96 95 96 04/18/21 20:05 04/18/21 20:10 04/18/21 20:15 Temperature Pulse Rate 97 H 96 H 96 H Respiratory Rate 14 15 15 Blood Pressure 103/60 104/61 104/63 Pulse Oximetry 96 96 96 04/18/21 20:20 04/18/21 20:25 04/18/21 20:30 Temperature Pulse Rate 95 H 94 H 94 H Respiratory Rate 14 15 16 Blood Pressure 102/64 107/64 115/66 Pulse Oximetry 96 96 97 04/18/21 20:35 04/18/21 20:36 04/18/21 20:38 Temperature 97.1 F L Pulse Rate 94 H 94 H 94 H Respiratory Rate 15 15 14 Blood Pressure 111/67 Pulse Oximetry 98 97 97 04/18/21 20:40 04/18/21 20:42 04/18/21 20:44 Temperature Pulse Rate 91 H 91 H 91 H Respiratory Rate 15 12 13 Blood Pressure 113/68 Pulse Oximetry 94 93 93 04/18/21 20:45 04/18/21 20:46 04/18/21 20:48 Temperature Pulse Rate 91 H 90 90 Respiratory Rate 10 L 13 14 Blood Pressure 85/53 L 84/51 L Pulse Oximetry 94 95 94 04/18/21 20:50 04/18/21 20:52 04/18/21 20:54 Temperature Pulse Rate 88 88 88 Respiratory Rate 14 14 13 Blood Pressure 70/43 L 57/33 L Pulse Oximetry 93 93 92 04/18/21 20:55 04/18/21 20:56 04/18/21 20:58 Temperature Pulse Rate 88 88 87 Respiratory Rate 13 14 15 Blood Pressure 56/37 L 55/38 L Pulse Oximetry 92 93 92 04/18/21 21:00 04/18/21 21:02 04/18/21 21:04 Temperature Pulse Rate 89 87 87 Respiratory Rate 13 14 12 Blood Pressure 70/43 L Pulse Oximetry 92 97 96 04/18/21 21:05 04/18/21 21:06 04/18/21 21:08 Temperature Pulse Rate 87 87 79 Respiratory Rate 15 16 16 Blood Pressure 70/41 L 63/47 L Pulse Oximetry 95 94 94 04/18/21 21:09 04/18/21 21:10 04/18/21 21:12 Temperature Pulse Rate 73 68 62 Respiratory Rate 15 16 16 Blood Pressure 111/73 127/76 Pulse Oximetry 98 97 97 04/18/21 21:14 04/18/21 21:15 04/18/21 21:16 Temperature Pulse Rate 63 70 74 Respiratory Rate 16 16 16 Blood Pressure 141/80 H Pulse Oximetry 98 98 98 04/18/21 21:18 04/18/21 21:20 04/18/21 21:22 Temperature Pulse Rate 79 79 79 Respiratory Rate 16 16 16 Blood Pressure 134/76 Pulse Oximetry 98 98 98 04/18/21 21:24 04/18/21 21:25 04/18/21 21:26 Temperature Pulse Rate 81 81 82 Respiratory Rate 16 16 16 Blood Pressure 124/69 Pulse Oximetry 98 99 99 04/18/21 21:27 04/18/21 21:28 04/18/21 21:30 Temperature Pulse Rate 81 79 80 Respiratory Rate 16 16 12 Blood Pressure 123/69 122/69 Pulse Oximetry 99 100 99 04/18/21 21:32 04/18/21 21:34 04/18/21 21:36 Temperature Pulse Rate 80 77 79 Respiratory Rate 16 16 16 Blood Pressure 118/75 Pulse Oximetry 99 99 99 04/18/21 21:38 04/18/21 21:39 04/18/21 21:40 Temperature Pulse Rate 78 79 79 Respiratory Rate 16 16 16 Blood Pressure 122/74 Pulse Oximetry 99 98 98 04/18/21 21:42 04/18/21 21:43 04/18/21 21:44 Temperature Pulse Rate 82 82 82 Respiratory Rate 16 16 16 Blood Pressure 119/71 Pulse Oximetry 99 99 98 04/18/21 21:45 04/18/21 21:46 04/18/21 21:48 Temperature Pulse Rate 81 79 83 Respiratory Rate 20 16 16 Blood Pressure 123/75 Pulse Oximetry 96 96 04/18/21 21:50 04/18/21 21:52 04/18/21 22:10 Temperature Pulse Rate 84 84 80 Respiratory Rate 14 16 22 Blood Pressure 106/56 L 119/59 L Pulse Oximetry 99 99 96 04/18/21 22:15 04/18/21 22:20 04/18/21 22:25 Temperature Pulse Rate 81 80 80 Respiratory Rate 22 22 22 Blood Pressure 121/62 120/64 123/64 Pulse Oximetry 97 97 97 04/18/21 22:30 04/18/21 22:35 04/18/21 22:40 Temperature Pulse Rate 80 79 78 Respiratory Rate 22 22 22 Blood Pressure 124/65 124/65 126/67 Pulse Oximetry 97 96 95 04/18/21 22:45 04/18/21 22:50 04/18/21 22:55 Temperature Pulse Rate 78 77 78 Respiratory Rate Blood Pressure 124/68 125/71 125/72 Pulse Oximetry 95 95 94 04/18/21 23:00 04/18/21 23:05 04/18/21 23:10 Temperature Pulse Rate 77 77 77 Respiratory Rate 22 Blood Pressure 126/72 126/74 126/74 Pulse Oximetry 94 93 94 04/18/21 23:12 04/18/21 23:15 04/18/21 23:20 Temperature Pulse Rate 77 76 77 Respiratory Rate 22 Blood Pressure 127/76 128/76 127/75 Pulse Oximetry 93 93 94 04/18/21 23:25 04/18/21 23:30 04/18/21 23:35 Temperature Pulse Rate 77 78 83 Respiratory Rate Blood Pressure 128/76 127/76 104/58 L Pulse Oximetry 96 97 96 04/18/21 23:40 04/18/21 23:41 04/18/21 23:45 Temperature Pulse Rate 83 83 83 Respiratory Rate 22 Blood Pressure 88/55 L 89/50 L 100/59 L Pulse Oximetry 96 96 97 04/18/21 23:50 04/18/21 23:55 04/19/21 00:00 Temperature Pulse Rate 83 83 83 Respiratory Rate 22 Blood Pressure 103/60 102/58 L 103/57 L Pulse Oximetry 96 96 96 04/19/21 00:05 04/19/21 00:10 04/19/21 00:15 Temperature 97.1 F L Pulse Rate 84 83 84 Respiratory Rate 22 20 17 Blood Pressure 99/54 L 96/53 L 96/52 L Pulse Oximetry 97 97 97 04/19/21 00:20 04/19/21 00:25 04/19/21 00:30 Temperature Pulse Rate 84 84 84 Respiratory Rate 22 22 16 Blood Pressure 97/55 L 97/52 L 95/52 L Pulse Oximetry 97 97 97 04/19/21 00:35 04/19/21 00:40 04/19/21 00:45 Temperature Pulse Rate 84 84 84 Respiratory Rate 24 24 24 Blood Pressure 94/51 L 97/56 L 97/52 L Pulse Oximetry 97 97 97 04/19/21 00:50 04/19/21 00:55 04/19/21 01:00 Temperature Pulse Rate 84 85 85 Respiratory Rate 24 24 24 Blood Pressure 98/57 L 97/52 L 100/56 L Pulse Oximetry 98 98 97 04/19/21 01:05 04/19/21 01:10 04/19/21 01:15 Temperature Pulse Rate 85 85 85 Respiratory Rate 24 24 24 Blood Pressure 100/58 L 100/59 L 102/56 L Pulse Oximetry 97 97 97 04/19/21 01:20 04/19/21 01:22 04/19/21 01:24 Temperature 97.1 F L Pulse Rate 85 85 84 Respiratory Rate 24 24 24 Blood Pressure 99/54 L Pulse Oximetry 98 98 98 04/19/21 01:25 04/19/21 01:26 04/19/21 01:28 Temperature Pulse Rate 84 84 84 Respiratory Rate 24 Blood Pressure 96/52 L Pulse Oximetry 98 98 98 04/19/21 01:30 04/19/21 01:32 04/19/21 01:34 Temperature Pulse Rate 84 84 84 Respiratory Rate 24 24 24 Blood Pressure 93/55 L Pulse Oximetry 98 98 98 04/19/21 01:35 04/19/21 01:36 04/19/21 01:38 Temperature Pulse Rate 84 84 84 Respiratory Rate 24 24 24 Blood Pressure 92/55 L Pulse Oximetry 98 98 98 04/19/21 01:40 04/19/21 01:42 04/19/21 01:44 Temperature Pulse Rate 84 84 84 Respiratory Rate 24 Blood Pressure 93/51 L Pulse Oximetry 98 98 98 04/19/21 01:45 04/19/21 01:46 04/19/21 01:48 Temperature Pulse Rate 84 85 85 Respiratory Rate Blood Pressure 95/50 L Pulse Oximetry 98 98 98 04/19/21 01:50 04/19/21 01:52 04/19/21 01:54 Temperature Pulse Rate 84 84 85 Respiratory Rate Blood Pressure 96/54 L Pulse Oximetry 98 98 98 04/19/21 01:55 04/19/21 01:56 04/19/21 01:58 Temperature Pulse Rate 85 85 85 Respiratory Rate Blood Pressure 95/51 L Pulse Oximetry 98 98 98 04/19/21 02:00 04/19/21 02:02 04/19/21 02:04 Temperature Pulse Rate 84 84 84 Respiratory Rate Blood Pressure 98/55 L Pulse Oximetry 98 98 98 04/19/21 02:05 Temperature Pulse Rate 84 Respiratory Rate Blood Pressure 95/50 L Pulse Oximetry 98 MDM - Altered Mental Status <Janny Kellogg DO - Last Filed: 04/21/21 13:13> Lab Data Result diagrams: 04/18/21 12:20 04/18/21 20:33 Labs: Lab Results 04/18/21 04/18/21 04/18/21 Range/Units 12:20 12:20 12:20 WBC 10.7 (4.5-11.0) X10^3/uL RBC 5.05 (4.5-5.9) X10^6/uL Hgb 15.4 (13.5-17.5) g/dL Hct 46.2 (41-53) % MCV 91.4 (80-100) fL MCH 30.5 (26-34) PG MCHC 33.3 (30-36) % RDW 13.9 (11.6-14.8) % Plt Count 292 (150-400) X10^3/uL Neut % (Auto) 79.4 H (50-75) % Lymph % (Auto) 9.0 L (25-40) % [place] % (Auto) 11.5 (3-14) % Eos % (Auto) 0.0 L (2-4) % Baso % (Auto) 0.1 (0-2) % Neut # (Auto) 8500 H (7839-1542) /uL Lymph # (Auto) 1000 L (0090-4187) /uL [place] # (Auto) 1200 H (0-900) /uL Eos # (Auto) 0 (0-450) /uL Baso # (Auto) 0 (0-100) /uL PT (10.1-12.7) SECONDS INR (0.9-1.3) APTT (26.4-36.2) SECONDS ABG pH (7.35-7.45) ABG pCO2 (35-45) mmHg ABG pO2 (80-100) mmHg ABG HCO3 (22-26) mmol/L ABG Total CO2 (21-31) mmol/L ABG O2 Saturation (95-100) % ABG Base Excess (-2-2) mmol/L FiO2 Sodium 135 L (137-145) mmol/L Potassium 7.2 H* (3.4-5.1) mmol/L Chloride 97 L (98-107) mmol/L Carbon Dioxide 25 (22-32) mmol/L BUN 50 H (9-20) mg/dL Creatinine 2.72 H (0.66-1.25) mg/dL Estimated GFR 25.1 L (>60) mL/min BUN/Creatinine Ratio 18.4 (6-22) Glucose 126 H (70-100) mg/dL Lactate 2.6 H (0.7-2.1) mmol/L Calcium 8.8 (8.4-10.2) mg/dL Total Bilirubin 0.5 (0.2-1.3) mg/dL AST 321 H (17-59) IU/L ALT 132 H (<50) IU/L Alkaline Phosphatase 86 (38-126) U/L Ammonia (9-30) umol/L Total Creatine Kinase 00887 H (55-170) U/L CK-MB (CK-2) 135.00 H (<2.37) ng/mL CK-MB (CK-2) Rel Index 0.5 L (1.5-5.0) % Troponin I 0.353 H* (0.01-0.034) ng/mL NT-Pro-B Natriuret Pep (<125) pg/mL Total Protein 8.1 (6.3-8.2) g/dL Albumin 5.0 (3.5-5.0) g/dL Globulin 3.1 (1.7-4.1) g/dL Albumin/Globulin Ratio 1.6 (1.0-2.8) Procalcitonin 5.76 H (<0.5) ng/mL TSH (0.47-4.68) uIU/mL Prolactin 20.9 H (3.7-17.9) ng/mL Urine Color Urine Appearance Urine pH (4.5-8.0) Ur Specific [place] (1.000-1.035) Urine Protein (Negative) Urine Glucose (UA) (Negative) g/dL Urine Ketones (NEGATIVE) Urine Occult Blood (Negative) Urine Nitrate (Negative) Urine Bilirubin (NEGATIVE) Urine Urobilinogen (0.2) E.U./dL Ur Leukocyte Esterase (NEGATIVE) Urine RBC (0-5/HPF) Urine WBC (0-5/HPF) Ur Squamous Epith Cells (0-5/HPF) Amorphous Sediment Urine Bacteria (None) Urine Mucus (Negative) Ur Culture Indicated? Salicylates < 1.0 (<20) mg/dL U Opiates 300ng/mL cut (Negative) Ur Oxycodone Screen (Negative) Urine Methadone Screen (Negative) Acetaminophen < 10 L (10-30) ug/mL Ur Barbiturates Screen (Negative) U Tricyclic Antidepress (Negative) Ur Phencyclidine Scrn (Negative) Ur Amphetamines Screen (Negative) U Methamphetamines Scrn (Negative) Ur MDMA Scrn (Ecstasy) (Negative) U Benzodiazepines Scrn (Negative) Urine Cocaine Screen (Negative) U Marijuana (THC) Screen (Negative) Ethyl Alcohol < 10 ( - 10) mg/dL SARS-CoV-2 (PCR) (Negative) 04/18/21 04/18/21 04/18/21 Range/Units 12:20 12:20 12:20 WBC (4.5-11.0) X10^3/uL RBC (4.5-5.9) X10^6/uL Hgb (13.5-17.5) g/dL Hct (41-53) % MCV (80-100) fL MCH (26-34) PG MCHC (30-36) % RDW (11.6-14.8) % Plt Count (150-400) X10^3/uL Neut % (Auto) (50-75) % Lymph % (Auto) (25-40) % [place] % (Auto) (3-14) % Eos % (Auto) (2-4) % Baso % (Auto) (0-2) % Neut # (Auto) (6019-5661) /uL Lymph # (Auto) (9111-3630) /uL [place] # (Auto) (0-900) /uL Eos # (Auto) (0-450) /uL Baso # (Auto) (0-100) /uL PT 11.9 (10.1-12.7) SECONDS INR 1.1 (0.9-1.3) APTT 33 (26.4-36.2) SECONDS ABG pH (7.35-7.45) ABG pCO2 (35-45) mmHg ABG pO2 (80-100) mmHg ABG HCO3 (22-26) mmol/L ABG Total CO2 (21-31) mmol/L ABG O2 Saturation (95-100) % ABG Base Excess (-2-2) mmol/L FiO2 Sodium (137-145) mmol/L Potassium (3.4-5.1) mmol/L Chloride (98-107) mmol/L Carbon Dioxide (22-32) mmol/L BUN (9-20) mg/dL Creatinine (0.66-1.25) mg/dL Estimated GFR (>60) mL/min BUN/Creatinine Ratio (6-22) Glucose (70-100) mg/dL Lactate (0.7-2.1) mmol/L Calcium (8.4-10.2) mg/dL Total Bilirubin (0.2-1.3) mg/dL AST (17-59) IU/L ALT (<50) IU/L Alkaline Phosphatase (38-126) U/L Ammonia 21 (9-30) umol/L Total Creatine Kinase (55-170) U/L CK-MB (CK-2) (<2.37) ng/mL CK-MB (CK-2) Rel Index (1.5-5.0) % Troponin I (0.01-0.034) ng/mL NT-Pro-B Natriuret Pep (<125) pg/mL Total Protein (6.3-8.2) g/dL Albumin (3.5-5.0) g/dL Globulin (1.7-4.1) g/dL Albumin/Globulin Ratio (1.0-2.8) Procalcitonin (<0.5) ng/mL TSH 0.808 (0.47-4.68) uIU/mL Prolactin (3.7-17.9) ng/mL Urine Color Urine Appearance Urine pH (4.5-8.0) Ur Specific [place] (1.000-1.035) Urine Protein (Negative) Urine Glucose (UA) (Negative) g/dL Urine Ketones (NEGATIVE) Urine Occult Blood (Negative) Urine Nitrate (Negative) Urine Bilirubin (NEGATIVE) Urine Urobilinogen (0.2) E.U./dL Ur Leukocyte Esterase (NEGATIVE) Urine RBC (0-5/HPF) Urine WBC (0-5/HPF) Ur Squamous Epith Cells (0-5/HPF) Amorphous Sediment Urine Bacteria (None) Urine Mucus (Negative) Ur Culture Indicated? Salicylates (<20) mg/dL U Opiates 300ng/mL cut (Negative) Ur Oxycodone Screen (Negative) Urine Methadone Screen (Negative) Acetaminophen (10-30) ug/mL Ur Barbiturates Screen (Negative) U Tricyclic Antidepress (Negative) Ur Phencyclidine Scrn (Negative) Ur Amphetamines Screen (Negative) U Methamphetamines Scrn (Negative) Ur MDMA Scrn (Ecstasy) (Negative) U Benzodiazepines Scrn (Negative) Urine Cocaine Screen (Negative) U Marijuana (THC) Screen (Negative) Ethyl Alcohol ( - 10) mg/dL SARS-CoV-2 (PCR) (Negative) 04/18/21 04/18/21 04/18/21 Range/Units 12:20 13:27 13:27 WBC (4.5-11.0) X10^3/uL RBC (4.5-5.9) X10^6/uL Hgb (13.5-17.5) g/dL Hct (41-53) % MCV (80-100) fL MCH (26-34) PG MCHC (30-36) % RDW (11.6-14.8) % Plt Count (150-400) X10^3/uL Neut % (Auto) (50-75) % Lymph % (Auto) (25-40) % [place] % (Auto) (3-14) % Eos % (Auto) (2-4) % Baso % (Auto) (0-2) % Neut # (Auto) (5307-7767) /uL Lymph # (Auto) (0700-2917) /uL [place] # (Auto) (0-900) /uL Eos # (Auto) (0-450) /uL Baso # (Auto) (0-100) /uL PT (10.1-12.7) SECONDS INR (0.9-1.3) APTT (26.4-36.2) SECONDS ABG pH (7.35-7.45) ABG pCO2 (35-45) mmHg ABG pO2 (80-100) mmHg ABG HCO3 (22-26) mmol/L ABG Total CO2 (21-31) mmol/L ABG O2 Saturation (95-100) % ABG Base Excess (-2-2) mmol/L FiO2 Sodium (137-145) mmol/L Potassium (3.4-5.1) mmol/L Chloride (98-107) mmol/L Carbon Dioxide (22-32) mmol/L BUN (9-20) mg/dL Creatinine (0.66-1.25) mg/dL Estimated GFR (>60) mL/min BUN/Creatinine Ratio (6-22) Glucose (70-100) mg/dL Lactate (0.7-2.1) mmol/L Calcium (8.4-10.2) mg/dL Total Bilirubin (0.2-1.3) mg/dL AST (17-59) IU/L ALT (<50) IU/L Alkaline Phosphatase (38-126) U/L Ammonia (9-30) umol/L Total Creatine Kinase (55-170) U/L CK-MB (CK-2) (<2.37) ng/mL CK-MB (CK-2) Rel Index (1.5-5.0) % Troponin I (0.01-0.034) ng/mL NT-Pro-B Natriuret Pep 399 H (<125) pg/mL Total Protein (6.3-8.2) g/dL Albumin (3.5-5.0) g/dL Globulin (1.7-4.1) g/dL Albumin/Globulin Ratio (1.0-2.8) Procalcitonin (<0.5) ng/mL TSH (0.47-4.68) uIU/mL Prolactin (3.7-17.9) ng/mL Urine Color Yellow Urine Appearance Slightly cloudy Urine pH 5.0 (4.5-8.0) Ur Specific [place] >=1.030 H (1.000-1.035) Urine Protein 2+ H (Negative) Urine Glucose (UA) Trace H (Negative) g/dL Urine Ketones Negative (NEGATIVE) Urine Occult Blood 3+ H (Negative) Urine Nitrate Negative (Negative) Urine Bilirubin Negative (NEGATIVE) Urine Urobilinogen 0.2 (0.2) E.U./dL Ur Leukocyte Esterase Negative (NEGATIVE) Urine RBC 1-5/hpf (0-5/HPF) Urine WBC 1-5/hpf (0-5/HPF) Ur Squamous Epith Cells 0-1 /hpf (0-5/HPF) Amorphous Sediment 1+ Urine Bacteria None seen (None) Urine Mucus 1+ H (Negative) Ur Culture Indicated? Cult not indicated Salicylates (<20) mg/dL U Opiates 300ng/mL cut Positive H (Negative) Ur Oxycodone Screen Negative (Negative) Urine Methadone Screen Negative (Negative) Acetaminophen (10-30) ug/mL Ur Barbiturates Screen Negative (Negative) U Tricyclic Antidepress Negative (Negative) Ur Phencyclidine Scrn Negative (Negative) Ur Amphetamines Screen Positive H (Negative) U Methamphetamines Scrn Positive H (Negative) Ur MDMA Scrn (Ecstasy) Positive H (Negative) U Benzodiazepines Scrn Positive H (Negative) Urine Cocaine Screen Negative (Negative) U Marijuana (THC) Screen Negative (Negative) Ethyl Alcohol ( - 10) mg/dL SARS-CoV-2 (PCR) (Negative) 04/18/21 04/18/21 04/18/21 Range/Units 13:42 15:54 16:25 WBC (4.5-11.0) X10^3/uL RBC (4.5-5.9) X10^6/uL Hgb (13.5-17.5) g/dL Hct (41-53) % MCV (80-100) fL MCH (26-34) PG MCHC (30-36) % RDW (11.6-14.8) % Plt Count (150-400) X10^3/uL Neut % (Auto) (50-75) % Lymph % (Auto) (25-40) % Candler % (Auto) (3-14) % Eos % (Auto) (2-4) % Baso % (Auto) (0-2) % Neut # (Auto) (9397-1272) /uL Lymph # (Auto) (5466-2533) /uL Candler # (Auto) (0-900) /uL Eos # (Auto) (0-450) /uL Baso # (Auto) (0-100) /uL PT (10.1-12.7) SECONDS INR (0.9-1.3) APTT (26.4-36.2) SECONDS ABG pH 7.16 L* (7.35-7.45) ABG pCO2 72.7 H* (35-45) mmHg ABG pO2 111 H (80-100) mmHg ABG HCO3 26 (22-26) mmol/L ABG Total CO2 28 (21-31) mmol/L ABG O2 Saturation 96 (95-100) % ABG Base Excess -3.0 L (-2-2) mmol/L FiO2 100 Sodium (137-145) mmol/L Potassium (3.4-5.1) mmol/L Chloride (98-107) mmol/L Carbon Dioxide (22-32) mmol/L BUN (9-20) mg/dL Creatinine (0.66-1.25) mg/dL Estimated GFR (>60) mL/min BUN/Creatinine Ratio (6-22) Glucose (70-100) mg/dL Lactate 1.3 (0.7-2.1) mmol/L Calcium (8.4-10.2) mg/dL Total Bilirubin (0.2-1.3) mg/dL AST (17-59) IU/L ALT (<50) IU/L Alkaline Phosphatase (38-126) U/L Ammonia (9-30) umol/L Total Creatine Kinase (55-170) U/L CK-MB (CK-2) (<2.37) ng/mL CK-MB (CK-2) Rel Index (1.5-5.0) % Troponin I (0.01-0.034) ng/mL NT-Pro-B Natriuret Pep (<125) pg/mL Total Protein (6.3-8.2) g/dL Albumin (3.5-5.0) g/dL Globulin (1.7-4.1) g/dL Albumin/Globulin Ratio (1.0-2.8) Procalcitonin (<0.5) ng/mL TSH (0.47-4.68) uIU/mL Prolactin (3.7-17.9) ng/mL Urine Color Urine Appearance Urine pH (4.5-8.0) Ur Specific [place] (1.000-1.035) Urine Protein (Negative) Urine Glucose (UA) (Negative) g/dL Urine Ketones (NEGATIVE) Urine Occult Blood (Negative) Urine Nitrate (Negative) Urine Bilirubin (NEGATIVE) Urine Urobilinogen (0.2) E.U./dL Ur Leukocyte Esterase (NEGATIVE) Urine RBC (0-5/HPF) Urine WBC (0-5/HPF) Ur Squamous Epith Cells (0-5/HPF) Amorphous Sediment Urine Bacteria (None) Urine Mucus (Negative) Ur Culture Indicated? Salicylates (<20) mg/dL U Opiates 300ng/mL cut (Negative) Ur Oxycodone Screen (Negative) Urine Methadone Screen (Negative) Acetaminophen (10-30) ug/mL Ur Barbiturates Screen (Negative) U Tricyclic Antidepress (Negative) Ur Phencyclidine Scrn (Negative) Ur Amphetamines Screen (Negative) U Methamphetamines Scrn (Negative) Ur MDMA Scrn (Ecstasy) (Negative) U Benzodiazepines Scrn (Negative) Urine Cocaine Screen (Negative) U Marijuana (THC) Screen (Negative) Ethyl Alcohol ( - 10) mg/dL SARS-CoV-2 (PCR) Negative (Negative) 04/18/21 04/18/21 04/18/21 Range/Units 16:25 17:19 20:33 WBC (4.5-11.0) X10^3/uL RBC (4.5-5.9) X10^6/uL Hgb (13.5-17.5) g/dL Hct (41-53) % MCV (80-100) fL MCH (26-34) PG MCHC (30-36) % RDW (11.6-14.8) % Plt Count (150-400) X10^3/uL Neut % (Auto) (50-75) % Lymph % (Auto) (25-40) % Candler % (Auto) (3-14) % Eos % (Auto) (2-4) % Baso % (Auto) (0-2) % Neut # (Auto) (0307-3628) /uL Lymph # (Auto) (1598-9118) /uL Candler # (Auto) (0-900) /uL Eos # (Auto) (0-450) /uL Baso # (Auto) (0-100) /uL PT (10.1-12.7) SECONDS INR (0.9-1.3) APTT (26.4-36.2) SECONDS ABG pH 7.24 L* (7.35-7.45) ABG pCO2 56.5 H (35-45) mmHg ABG pO2 124 H (80-100) mmHg ABG HCO3 24 (22-26) mmol/L ABG Total CO2 26 (21-31) mmol/L ABG O2 Saturation 98 (95-100) % ABG Base Excess -4.0 L (-2-2) mmol/L FiO2 100 Sodium 138 138 (137-145) mmol/L Potassium 6.0 H D 5.0 (3.4-5.1) mmol/L Chloride 106 111 H (98-107) mmol/L Carbon Dioxide 25 26 (22-32) mmol/L BUN 48 H 41 H (9-20) mg/dL Creatinine 1.78 H 1.49 H (0.66-1.25) mg/dL Estimated GFR 41.0 L 50.3 L (>60) mL/min BUN/Creatinine Ratio 27.0 H 27.5 H (6-22) Glucose 147 H 123 H (70-100) mg/dL Lactate (0.7-2.1) mmol/L Calcium 7.9 L 7.8 L (8.4-10.2) mg/dL Total Bilirubin (0.2-1.3) mg/dL AST (17-59) IU/L ALT (<50) IU/L Alkaline Phosphatase (38-126) U/L Ammonia (9-30) umol/L Total Creatine Kinase Cancelled (55-170) U/L CK-MB (CK-2) (<2.37) ng/mL CK-MB (CK-2) Rel Index (1.5-5.0) % Troponin I (0.01-0.034) ng/mL NT-Pro-B Natriuret Pep (<125) pg/mL Total Protein (6.3-8.2) g/dL Albumin (3.5-5.0) g/dL Globulin (1.7-4.1) g/dL Albumin/Globulin Ratio (1.0-2.8) Procalcitonin (<0.5) ng/mL TSH (0.47-4.68) uIU/mL Prolactin (3.7-17.9) ng/mL Urine Color Urine Appearance Urine pH (4.5-8.0) Ur Specific [place] (1.000-1.035) Urine Protein (Negative) Urine Glucose (UA) (Negative) g/dL Urine Ketones (NEGATIVE) Urine Occult Blood (Negative) Urine Nitrate (Negative) Urine Bilirubin (NEGATIVE) Urine Urobilinogen (0.2) E.U./dL Ur Leukocyte Esterase (NEGATIVE) Urine RBC (0-5/HPF) Urine WBC (0-5/HPF) Ur Squamous Epith Cells (0-5/HPF) Amorphous Sediment Urine Bacteria (None) Urine Mucus (Negative) Ur Culture Indicated? Salicylates (<20) mg/dL U Opiates 300ng/mL cut (Negative) Ur Oxycodone Screen (Negative) Urine Methadone Screen (Negative) Acetaminophen (10-30) ug/mL Ur Barbiturates Screen (Negative) U Tricyclic Antidepress (Negative) Ur Phencyclidine Scrn (Negative) Ur Amphetamines Screen (Negative) U Methamphetamines Scrn (Negative) Ur MDMA Scrn (Ecstasy) (Negative) U Benzodiazepines Scrn (Negative) Urine Cocaine Screen (Negative) U Marijuana (THC) Screen (Negative) Ethyl Alcohol ( - 10) mg/dL SARS-CoV-2 (PCR) (Negative) 04/18/21 04/18/21 04/19/21 Range/Units 20:33 22:26 00:51 WBC (4.5-11.0) X10^3/uL RBC (4.5-5.9) X10^6/uL Hgb (13.5-17.5) g/dL Hct (41-53) % MCV (80-100) fL MCH (26-34) PG MCHC (30-36) % RDW (11.6-14.8) % Plt Count (150-400) X10^3/uL Neut % (Auto) (50-75) % Lymph % (Auto) (25-40) % Candler % (Auto) (3-14) % Eos % (Auto) (2-4) % Baso % (Auto) (0-2) % Neut # (Auto) (2961-2146) /uL Lymph # (Auto) (9235-4334) /uL Candler # (Auto) (0-900) /uL Eos # (Auto) (0-450) /uL Baso # (Auto) (0-100) /uL PT (10.1-12.7) SECONDS INR (0.9-1.3) APTT (26.4-36.2) SECONDS ABG pH 7.22 L* 7.24 L* (7.35-7.45) ABG pCO2 57.4 H 54.5 H (35-45) mmHg ABG pO2 140 H 128 H (80-100) mmHg ABG HCO3 24 24 (22-26) mmol/L ABG Total CO2 25 25 (21-31) mmol/L ABG O2 Saturation 99 98 (95-100) % ABG Base Excess -4.0 L -4.0 L (-2-2) mmol/L FiO2 70 70 Sodium (137-145) mmol/L Potassium (3.4-5.1) mmol/L Chloride (98-107) mmol/L Carbon Dioxide (22-32) mmol/L BUN (9-20) mg/dL Creatinine (0.66-1.25) mg/dL Estimated GFR (>60) mL/min BUN/Creatinine Ratio (6-22) Glucose (70-100) mg/dL Lactate (0.7-2.1) mmol/L Calcium (8.4-10.2) mg/dL Total Bilirubin (0.2-1.3) mg/dL AST (17-59) IU/L ALT (<50) IU/L Alkaline Phosphatase (38-126) U/L Ammonia (9-30) umol/L Total Creatine Kinase 47717 H D (55-170) U/L CK-MB (CK-2) 311.00 H D (<2.37) ng/mL CK-MB (CK-2) Rel Index 0.5 L (1.5-5.0) % Troponin I 0.812 H* (0.01-0.034) ng/mL NT-Pro-B Natriuret Pep (<125) pg/mL Total Protein (6.3-8.2) g/dL Albumin (3.5-5.0) g/dL Globulin (1.7-4.1) g/dL Albumin/Globulin Ratio (1.0-2.8) Procalcitonin (<0.5) ng/mL TSH (0.47-4.68) uIU/mL Prolactin (3.7-17.9) ng/mL Urine Color Urine Appearance Urine pH (4.5-8.0) Ur Specific [place] (1.000-1.035) Urine Protein (Negative) Urine Glucose (UA) (Negative) g/dL Urine Ketones (NEGATIVE) Urine Occult Blood (Negative) Urine Nitrate (Negative) Urine Bilirubin (NEGATIVE) Urine Urobilinogen (0.2) E.U./dL Ur Leukocyte Esterase (NEGATIVE) Urine RBC (0-5/HPF) Urine WBC (0-5/HPF) Ur Squamous Epith Cells (0-5/HPF) Amorphous Sediment Urine Bacteria (None) Urine Mucus (Negative) Ur Culture Indicated? Salicylates (<20) mg/dL U Opiates 300ng/mL cut (Negative) Ur Oxycodone Screen (Negative) Urine Methadone Screen (Negative) Acetaminophen (10-30) ug/mL Ur Barbiturates Screen (Negative) U Tricyclic Antidepress (Negative) Ur Phencyclidine Scrn (Negative) Ur Amphetamines Screen (Negative) U Methamphetamines Scrn (Negative) Ur MDMA Scrn (Ecstasy) (Negative) U Benzodiazepines Scrn (Negative) Urine Cocaine Screen (Negative) U Marijuana (THC) Screen (Negative) Ethyl Alcohol ( - 10) mg/dL SARS-CoV-2 (PCR) (Negative) 04/19/21 Range/Units 02:45 WBC (4.5-11.0) X10^3/uL RBC (4.5-5.9) X10^6/uL Hgb (13.5-17.5) g/dL Hct (41-53) % MCV (80-100) fL MCH (26-34) PG MCHC (30-36) % RDW (11.6-14.8) % Plt Count (150-400) X10^3/uL Neut % (Auto) (50-75) % Lymph % (Auto) (25-40) % Candler % (Auto) (3-14) % Eos % (Auto) (2-4) % Baso % (Auto) (0-2) % Neut # (Auto) (2447-1820) /uL Lymph # (Auto) (6765-4203) /uL Candler # (Auto) (0-900) /uL Eos # (Auto) (0-450) /uL Baso # (Auto) (0-100) /uL PT (10.1-12.7) SECONDS INR (0.9-1.3) APTT (26.4-36.2) SECONDS ABG pH 7.25 L* (7.35-7.45) ABG pCO2 53.7 H (35-45) mmHg ABG pO2 122 H (80-100) mmHg ABG HCO3 24 (22-26) mmol/L ABG Total CO2 25 (21-31) mmol/L ABG O2 Saturation 98 (95-100) % ABG Base Excess -4.0 L (-2-2) mmol/L FiO2 65 Sodium (137-145) mmol/L Potassium (3.4-5.1) mmol/L Chloride (98-107) mmol/L Carbon Dioxide (22-32) mmol/L BUN (9-20) mg/dL Creatinine (0.66-1.25) mg/dL Estimated GFR (>60) mL/min BUN/Creatinine Ratio (6-22) Glucose (70-100) mg/dL Lactate (0.7-2.1) mmol/L Calcium (8.4-10.2) mg/dL Total Bilirubin (0.2-1.3) mg/dL AST (17-59) IU/L ALT (<50) IU/L Alkaline Phosphatase (38-126) U/L Ammonia (9-30) umol/L Total Creatine Kinase (55-170) U/L CK-MB (CK-2) (<2.37) ng/mL CK-MB (CK-2) Rel Index (1.5-5.0) % Troponin I (0.01-0.034) ng/mL NT-Pro-B Natriuret Pep (<125) pg/mL Total Protein (6.3-8.2) g/dL Albumin (3.5-5.0) g/dL Globulin (1.7-4.1) g/dL Albumin/Globulin Ratio (1.0-2.8) Procalcitonin (<0.5) ng/mL TSH (0.47-4.68) uIU/mL Prolactin (3.7-17.9) ng/mL Urine Color Urine Appearance Urine pH (4.5-8.0) Ur Specific [place] (1.000-1.035) Urine Protein (Negative) Urine Glucose (UA) (Negative) g/dL Urine Ketones (NEGATIVE) Urine Occult Blood (Negative) Urine Nitrate (Negative) Urine Bilirubin (NEGATIVE) Urine Urobilinogen (0.2) E.U./dL Ur Leukocyte Esterase (NEGATIVE) Urine RBC (0-5/HPF) Urine WBC (0-5/HPF) Ur Squamous Epith Cells (0-5/HPF) Amorphous Sediment Urine Bacteria (None) Urine Mucus (Negative) Ur Culture Indicated? Salicylates (<20) mg/dL U Opiates 300ng/mL cut (Negative) Ur Oxycodone Screen (Negative) Urine Methadone Screen (Negative) Acetaminophen (10-30) ug/mL Ur Barbiturates Screen (Negative) U Tricyclic Antidepress (Negative) Ur Phencyclidine Scrn (Negative) Ur Amphetamines Screen (Negative) U Methamphetamines Scrn (Negative) Ur MDMA Scrn (Ecstasy) (Negative) U Benzodiazepines Scrn (Negative) Urine Cocaine Screen (Negative) U Marijuana (THC) Screen (Negative) Ethyl Alcohol ( - 10) mg/dL SARS-CoV-2 (PCR) (Negative) Point of Care Testing Glucose POC [address] scan - head: Radiologist's Impression: Launch?[place] [address] CT Scan Report Signed Patient: Sekou Holt MR#: [id number] : 1970 Acct:[id number] Age/Sex: 50 / M Date of Service: 04/18/21 Loc: ED Accession Number: [id number] ?? Procedure: CT head/brain wo con Ordering Provider: Janny Kellogg D.O. PROCEDURE:? CT HEAD/BRAIN WO CON ? INDICATIONS:? altered mental status, od ? TECHNIQUE:? Noncontrast 4.5 mm thick angled axial sections acquired from the foramen magnum to the vertex, with coronal and sagittal reformats.? For radiation dose reduction, the following was used:? automated exposure control, adjustment of mA and/or kV according to patient size.? ? COMPARISON:? None. ? FINDINGS:? Image quality:? Excellent.? ? CSF spaces:? Basal cisterns are patent.? No extra-axial fluid collections.? Ventricles are normal in size and shape.? ? Brain:? Several scattered areas of hypodensity throughout the cerebellar hemispheres bilaterally, many of which are fairly well-defined.? There may also be hypodensity in the pontine region.? Ill-defined hypodensity in the bilateral basal ganglia.? No significant mass effect in the cerebral hemispheres.? No midline shift.? No intracranial masses or hemorrhage.? ? Skull and face:? Calvarium and visualized facial bones are intact, without suspicious lesions.? ? Sinuses:? Visualized sinuses and mastoids are clear.? ? IMPRESSION:? 1. Several areas of hypodensity, potentially ischemia of uncertain age present in the bilateral basal ganglia, throughout the cerebellum, and potentially in the pontine region.? Recommend MRI for clarification of chronicity. 2. No evidence of acute hemorrhage.? ? ? Dictated by: Veronica Sanchez M.D. on 04/18/2021 at 14:28 ? ? Approved by: Veronica Sanchez M.D. on 04/18/2021 at 14:32?? Chest x-ray: Radiologist's Impression: [address] [address] XRay Report Signed Patient: Sekou Holt MR#: [id number] : 1970 Acct:[id number] Age/Sex: 50 / M Date of Service: 04/18/21 Loc: ED Accession Number: [id number] ?? Procedure: XR chest 1V Ordering Provider: Janny Kellogg D.O. PROCEDURE:? XR CHEST 1V ? INDICATIONS:? Central line placement ? TECHNIQUE:? One view of the chest was acquired.? ? COMPARISON:? [facility], , XR CHEST 1V, 04/18/2021, 15:27. ? FINDINGS:? ? Surgical changes and devices:? Right IJ central line projects over the cavoatrial junction.? Endotracheal tube terminates in the thoracic trachea at the T2 level approximately 6 centimeters above the isreal.? Enteric tube is in appropriate position, coiled within the proximal stomach. ? Lungs and pleura:? Atelectatic versus consolidative airspace opacity in the left lung base.? Otherwise clear lungs.? No pleural effusions or pneumothorax.? ? Mediastinum:? Mediastinal contours appear normal.? Heart size is normal.? ? Bones and chest wall:? No suspicious bony lesions.? Overlying soft tissues appear unremarkable.? ? IMPRESSION:? Right IJ central line projects over the cavoatrial junction.? Remaining support devices appear to be in appropriate position. ? ? Dictated by: Bran Martino M.D. on 04/18/2021 at 15:16 ? ? Approved by: Bran Martino M.D. on 04/18/2021 at 15:17?? ECG Data Attestation: I personally reviewed and interpreted this ECG as follows: Prior ECG tracings: not available for review Interpretation: Sinus tachycardia, rate of 186 UT 168 QRS of 168, QTC 285. Telemetry patient's rate is only 90 and does not picker tender helper this pattern. No priors for comparions. Patient appears of somewhat peaked T-waves but no other acute ischemic changes appreciated. MDM Narrative Medical decision making narrative: This is a 50-year-old male who was found down in his RV. He did respond to Narcan initially but not with normalization of his mental status. Patient had worsening mentation over time the department. Decision was made to intubate the patient. He has ischemic changes on head CT concerning for possible stroke although polysubstance overdose a with anoxic injury is also possibility. He is in acute renal failure with hyperkalemia and rhabdo. His labs had some improvement with fluids he has been having urine output at about 182 100 mL/hour after a 2 L fluid bolus and continued fluids at approximately 250 cc/hour. Initial lactate was 2.6 and improved to 1.3. His CBC is unremarkable. Patient's has elevation in liver enzymes of AST ALT but no changes to bilirubin. Patient's U tox is positive for multiple substances all some of these are prescribed such as his Adderall. Patient's COVID swab is negative. Patient troponin is positive this may be secondary to hypoxia. He did not have any acute EKG changes appreciated. Discussed with tell industrial organization manager, Neurology at [facility]. We discussed getting CT angiography but based on his renal failure at this time deferred we did discuss if I can speak with Nephrology and they feel comfortable obtaining angiography we can continue down this pathway. We do not have ability to get MRI with an intubated patient. Regional hotline was contacted as there are no beds in the region at this time. Patient is currently sedated with fentanyl drip, propofol drip, occasional Versed. He had additional dose of rec your own a.m. as having significant a synchronous changes with his vent. Also discussed with Nephrology, plan for CT angiography if creatinine and electrolytes including potassium or continue to improve patient continues to have good urine output over the next couple hours. If they stay stable or worsening he does not recommend CTA in that situation. At this time does not feel the bicarb drip is necessary. Patient was signed out to Dr. Mas while awaiting potential transfer to outside facility, follow-up with labs to make final decision about CT angiography. I also spoke with patient's mother who is aware patient's current situation goal at this time to transfer to an outside facility with neurology but that there is no region wide bed availability. <Prasanna Mas, DO - Last Filed: 04/19/21 03:47> Lab Data Labs: Lab Results 04/18/21 04/18/21 04/18/21 Range/Units 12:20 12:20 12:20 WBC 10.7 (4.5-11.0) X10^3/uL RBC 5.05 (4.5-5.9) X10^6/uL Hgb 15.4 (13.5-17.5) g/dL Hct 46.2 (41-53) % MCV 91.4 (80-100) fL MCH 30.5 (26-34) PG MCHC 33.3 (30-36) % RDW 13.9 (11.6-14.8) % Plt Count 292 (150-400) X10^3/uL Neut % (Auto) 79.4 H (50-75) % Lymph % (Auto) 9.0 L (25-40) % Candler % (Auto) 11.5 (3-14) % Eos % (Auto) 0.0 L (2-4) % Baso % (Auto) 0.1 (0-2) % Neut # (Auto) 8500 H (3088-0698) /uL Lymph # (Auto) 1000 L (0080-2098) /uL Candler # (Auto) 1200 H (0-900) /uL Eos # (Auto) 0 (0-450) /uL Baso # (Auto) 0 (0-100) /uL PT (10.1-12.7) SECONDS INR (0.9-1.3) APTT (26.4-36.2) SECONDS ABG pH (7.35-7.45) ABG pCO2 (35-45) mmHg ABG pO2 (80-100) mmHg ABG HCO3 (22-26) mmol/L ABG Total CO2 (21-31) mmol/L ABG O2 Saturation (95-100) % ABG Base Excess (-2-2) mmol/L FiO2 Sodium 135 L (137-145) mmol/L Potassium 7.2 H* (3.4-5.1) mmol/L Chloride 97 L (98-107) mmol/L Carbon Dioxide 25 (22-32) mmol/L BUN 50 H (9-20) mg/dL Creatinine 2.72 H (0.66-1.25) mg/dL Estimated GFR 25.1 L (>60) mL/min BUN/Creatinine Ratio 18.4 (6-22) Glucose 126 H (70-100) mg/dL Lactate 2.6 H (0.7-2.1) mmol/L Calcium 8.8 (8.4-10.2) mg/dL Total Bilirubin 0.5 (0.2-1.3) mg/dL AST 321 H (17-59) IU/L ALT 132 H (<50) IU/L Alkaline Phosphatase 86 (38-126) U/L Ammonia (9-30) umol/L Total Creatine Kinase 64551 H (55-170) U/L CK-MB (CK-2) 135.00 H (<2.37) ng/mL CK-MB (CK-2) Rel Index 0.5 L (1.5-5.0) % Troponin I 0.353 H* (0.01-0.034) ng/mL NT-Pro-B Natriuret Pep (<125) pg/mL Total Protein 8.1 (6.3-8.2) g/dL Albumin 5.0 (3.5-5.0) g/dL Globulin 3.1 (1.7-4.1) g/dL Albumin/Globulin Ratio 1.6 (1.0-2.8) Procalcitonin 5.76 H (<0.5) ng/mL TSH (0.47-4.68) uIU/mL Prolactin 20.9 H (3.7-17.9) ng/mL Urine Color Urine Appearance Urine pH (4.5-8.0) Ur Specific Sheridan (1.000-1.035) Urine Protein (Negative) Urine Glucose (UA) (Negative) g/dL Urine Ketones (NEGATIVE) Urine Occult Blood (Negative) Urine Nitrate (Negative) Urine Bilirubin (NEGATIVE) Urine Urobilinogen (0.2) E.U./dL Ur Leukocyte Esterase (NEGATIVE) Urine RBC (0-5/HPF) Urine WBC (0-5/HPF) Ur Squamous Epith Cells (0-5/HPF) Amorphous Sediment Urine Bacteria (None) Urine Mucus (Negative) Ur Culture Indicated? Salicylates < 1.0 (<20) mg/dL U Opiates 300ng/mL cut (Negative) Ur Oxycodone Screen (Negative) Urine Methadone Screen (Negative) Acetaminophen < 10 L (10-30) ug/mL Ur Barbiturates Screen (Negative) U Tricyclic Antidepress (Negative) Ur Phencyclidine Scrn (Negative) Ur Amphetamines Screen (Negative) U Methamphetamines Scrn (Negative) Ur MDMA Scrn (Ecstasy) (Negative) U Benzodiazepines Scrn (Negative) Urine Cocaine Screen (Negative) U Marijuana (THC) Screen (Negative) Ethyl Alcohol < 10 ( - 10) mg/dL SARS-CoV-2 (PCR) (Negative) 04/18/21 04/18/21 04/18/21 Range/Units 12:20 12:20 12:20 WBC (4.5-11.0) X10^3/uL RBC (4.5-5.9) X10^6/uL Hgb (13.5-17.5) g/dL Hct (41-53) % MCV (80-100) fL MCH (26-34) PG MCHC (30-36) % RDW (11.6-14.8) % Plt Count (150-400) X10^3/uL Neut % (Auto) (50-75) % Lymph % (Auto) (25-40) % Candler % (Auto) (3-14) % Eos % (Auto) (2-4) % Baso % (Auto) (0-2) % Neut # (Auto) (2546-1842) /uL Lymph # (Auto) (2532-8432) /uL Candler # (Auto) (0-900) /uL Eos # (Auto) (0-450) /uL Baso # (Auto) (0-100) /uL PT 11.9 (10.1-12.7) SECONDS INR 1.1 (0.9-1.3) APTT 33 (26.4-36.2) SECONDS ABG pH (7.35-7.45) ABG pCO2 (35-45) mmHg ABG pO2 (80-100) mmHg ABG HCO3 (22-26) mmol/L ABG Total CO2 (21-31) mmol/L ABG O2 Saturation (95-100) % ABG Base Excess (-2-2) mmol/L FiO2 Sodium (137-145) mmol/L Potassium (3.4-5.1) mmol/L Chloride (98-107) mmol/L Carbon Dioxide (22-32) mmol/L BUN (9-20) mg/dL Creatinine (0.66-1.25) mg/dL Estimated GFR (>60) mL/min BUN/Creatinine Ratio (6-22) Glucose (70-100) mg/dL Lactate (0.7-2.1) mmol/L Calcium (8.4-10.2) mg/dL Total Bilirubin (0.2-1.3) mg/dL AST (17-59) IU/L ALT (<50) IU/L Alkaline Phosphatase (38-126) U/L Ammonia 21 (9-30) umol/L Total Creatine Kinase (55-170) U/L CK-MB (CK-2) (<2.37) ng/mL CK-MB (CK-2) Rel Index (1.5-5.0) % Troponin I (0.01-0.034) ng/mL NT-Pro-B Natriuret Pep (<125) pg/mL Total Protein (6.3-8.2) g/dL Albumin (3.5-5.0) g/dL Globulin (1.7-4.1) g/dL Albumin/Globulin Ratio (1.0-2.8) Procalcitonin (<0.5) ng/mL TSH 0.808 (0.47-4.68) uIU/mL Prolactin (3.7-17.9) ng/mL Urine Color Urine Appearance Urine pH (4.5-8.0) Ur Specific Sheridan (1.000-1.035) Urine Protein (Negative) Urine Glucose (UA) (Negative) g/dL Urine Ketones (NEGATIVE) Urine Occult Blood (Negative) Urine Nitrate (Negative) Urine Bilirubin (NEGATIVE) Urine Urobilinogen (0.2) E.U./dL Ur Leukocyte Esterase (NEGATIVE) Urine RBC (0-5/HPF) Urine WBC (0-5/HPF) Ur Squamous Epith Cells (0-5/HPF) Amorphous Sediment Urine Bacteria (None) Urine Mucus (Negative) Ur Culture Indicated? Salicylates (<20) mg/dL U Opiates 300ng/mL cut (Negative) Ur Oxycodone Screen (Negative) Urine Methadone Screen (Negative) Acetaminophen (10-30) ug/mL Ur Barbiturates Screen (Negative) U Tricyclic Antidepress (Negative) Ur Phencyclidine Scrn (Negative) Ur Amphetamines Screen (Negative) U Methamphetamines Scrn (Negative) Ur MDMA Scrn (Ecstasy) (Negative) U Benzodiazepines Scrn (Negative) Urine Cocaine Screen (Negative) U Marijuana (THC) Screen (Negative) Ethyl Alcohol ( - 10) mg/dL SARS-CoV-2 (PCR) (Negative) 04/18/21 04/18/21 04/18/21 Range/Units 12:20 13:27 13:27 WBC (4.5-11.0) X10^3/uL RBC (4.5-5.9) X10^6/uL Hgb (13.5-17.5) g/dL Hct (41-53) % MCV (80-100) fL MCH (26-34) PG MCHC (30-36) % RDW (11.6-14.8) % Plt Count (150-400) X10^3/uL Neut % (Auto) (50-75) % Lymph % (Auto) (25-40) % [place] % (Auto) (3-14) % Eos % (Auto) (2-4) % Baso % (Auto) (0-2) % Neut # (Auto) (1169-2810) /uL Lymph # (Auto) (5960-8053) /uL [place] # (Auto) (0-900) /uL Eos # (Auto) (0-450) /uL Baso # (Auto) (0-100) /uL PT (10.1-12.7) SECONDS INR (0.9-1.3) APTT (26.4-36.2) SECONDS ABG pH (7.35-7.45) ABG pCO2 (35-45) mmHg ABG pO2 (80-100) mmHg ABG HCO3 (22-26) mmol/L ABG Total CO2 (21-31) mmol/L ABG O2 Saturation (95-100) % ABG Base Excess (-2-2) mmol/L FiO2 Sodium (137-145) mmol/L Potassium (3.4-5.1) mmol/L Chloride (98-107) mmol/L Carbon Dioxide (22-32) mmol/L BUN (9-20) mg/dL Creatinine (0.66-1.25) mg/dL Estimated GFR (>60) mL/min BUN/Creatinine Ratio (6-22) Glucose (70-100) mg/dL Lactate (0.7-2.1) mmol/L Calcium (8.4-10.2) mg/dL Total Bilirubin (0.2-1.3) mg/dL AST (17-59) IU/L ALT (<50) IU/L Alkaline Phosphatase (38-126) U/L Ammonia (9-30) umol/L Total Creatine Kinase (55-170) U/L CK-MB (CK-2) (<2.37) ng/mL CK-MB (CK-2) Rel Index (1.5-5.0) % Troponin I (0.01-0.034) ng/mL NT-Pro-B Natriuret Pep 399 H (<125) pg/mL Total Protein (6.3-8.2) g/dL Albumin (3.5-5.0) g/dL Globulin (1.7-4.1) g/dL Albumin/Globulin Ratio (1.0-2.8) Procalcitonin (<0.5) ng/mL TSH (0.47-4.68) uIU/mL Prolactin (3.7-17.9) ng/mL Urine Color Yellow Urine Appearance Slightly cloudy Urine pH 5.0 (4.5-8.0) Ur Specific [place] >=1.030 H (1.000-1.035) Urine Protein 2+ H (Negative) Urine Glucose (UA) Trace H (Negative) g/dL Urine Ketones Negative (NEGATIVE) Urine Occult Blood 3+ H (Negative) Urine Nitrate Negative (Negative) Urine Bilirubin Negative (NEGATIVE) Urine Urobilinogen 0.2 (0.2) E.U./dL Ur Leukocyte Esterase Negative (NEGATIVE) Urine RBC 1-5/hpf (0-5/HPF) Urine WBC 1-5/hpf (0-5/HPF) Ur Squamous Epith Cells 0-1 /hpf (0-5/HPF) Amorphous Sediment 1+ Urine Bacteria None seen (None) Urine Mucus 1+ H (Negative) Ur Culture Indicated? Cult not indicated Salicylates (<20) mg/dL U Opiates 300ng/mL cut Positive H (Negative) Ur Oxycodone Screen Negative (Negative) Urine Methadone Screen Negative (Negative) Acetaminophen (10-30) ug/mL Ur Barbiturates Screen Negative (Negative) U Tricyclic Antidepress Negative (Negative) Ur Phencyclidine Scrn Negative (Negative) Ur Amphetamines Screen Positive H (Negative) U Methamphetamines Scrn Positive H (Negative) Ur MDMA Scrn (Ecstasy) Positive H (Negative) U Benzodiazepines Scrn Positive H (Negative) Urine Cocaine Screen Negative (Negative) U Marijuana (THC) Screen Negative (Negative) Ethyl Alcohol ( - 10) mg/dL SARS-CoV-2 (PCR) (Negative) 04/18/21 04/18/21 04/18/21 Range/Units 13:42 15:54 16:25 WBC (4.5-11.0) X10^3/uL RBC (4.5-5.9) X10^6/uL Hgb (13.5-17.5) g/dL Hct (41-53) % MCV (80-100) fL MCH (26-34) PG MCHC (30-36) % RDW (11.6-14.8) % Plt Count (150-400) X10^3/uL Neut % (Auto) (50-75) % Lymph % (Auto) (25-40) % Cand[place] % (Auto) (3-14) % Eos % (Auto) (2-4) % Baso % (Auto) (0-2) % Neut # (Auto) (1387-5284) /uL Lymph # (Auto) (2362-8284) /uL Candler # (Auto) (0-900) /uL Eos # (Auto) (0-450) /uL Baso # (Auto) (0-100) /uL PT (10.1-12.7) SECONDS INR (0.9-1.3) APTT (26.4-36.2) SECONDS ABG pH 7.16 L* (7.35-7.45) ABG pCO2 72.7 H* (35-45) mmHg ABG pO2 111 H (80-100) mmHg ABG HCO3 26 (22-26) mmol/L ABG Total CO2 28 (21-31) mmol/L ABG O2 Saturation 96 (95-100) % ABG Base Excess -3.0 L (-2-2) mmol/L FiO2 100 Sodium (137-145) mmol/L Potassium (3.4-5.1) mmol/L Chloride (98-107) mmol/L Carbon Dioxide (22-32) mmol/L BUN (9-20) mg/dL Creatinine (0.66-1.25) mg/dL Estimated GFR (>60) mL/min BUN/Creatinine Ratio (6-22) Glucose (70-100) mg/dL Lactate 1.3 (0.7-2.1) mmol/L Calcium (8.4-10.2) mg/dL Total Bilirubin (0.2-1.3) mg/dL AST (17-59) IU/L ALT (<50) IU/L Alkaline Phosphatase (38-126) U/L Ammonia (9-30) umol/L Total Creatine Kinase (55-170) U/L CK-MB (CK-2) (<2.37) ng/mL CK-MB (CK-2) Rel Index (1.5-5.0) % Troponin I (0.01-0.034) ng/mL NT-Pro-B Natriuret Pep (<125) pg/mL Total Protein (6.3-8.2) g/dL Albumin (3.5-5.0) g/dL Globulin (1.7-4.1) g/dL Albumin/Globulin Ratio (1.0-2.8) Procalcitonin (<0.5) ng/mL TSH (0.47-4.68) uIU/mL Prolactin (3.7-17.9) ng/mL Urine Color Urine Appearance Urine pH (4.5-8.0) Ur Specific [place] (1.000-1.035) Urine Protein (Negative) Urine Glucose (UA) (Negative) g/dL Urine Ketones (NEGATIVE) Urine Occult Blood (Negative) Urine Nitrate (Negative) Urine Bilirubin (NEGATIVE) Urine Urobilinogen (0.2) E.U./dL Ur Leukocyte Esterase (NEGATIVE) Urine RBC (0-5/HPF) Urine WBC (0-5/HPF) Ur Squamous Epith Cells (0-5/HPF) Amorphous Sediment Urine Bacteria (None) Urine Mucus (Negative) Ur Culture Indicated? Salicylates (<20) mg/dL U Opiates 300ng/mL cut (Negative) Ur Oxycodone Screen (Negative) Urine Methadone Screen (Negative) Acetaminophen (10-30) ug/mL Ur Barbiturates Screen (Negative) U Tricyclic Antidepress (Negative) Ur Phencyclidine Scrn (Negative) Ur Amphetamines Screen (Negative) U Methamphetamines Scrn (Negative) Ur MDMA Scrn (Ecstasy) (Negative) U Benzodiazepines Scrn (Negative) Urine Cocaine Screen (Negative) U Marijuana (THC) Screen (Negative) Ethyl Alcohol ( - 10) mg/dL SARS-CoV-2 (PCR) Negative (Negative) 04/18/21 04/18/21 04/18/21 Range/Units 16:25 17:19 20:33 WBC (4.5-11.0) X10^3/uL RBC (4.5-5.9) X10^6/uL Hgb (13.5-17.5) g/dL Hct (41-53) % MCV (80-100) fL MCH (26-34) PG MCHC (30-36) % RDW (11.6-14.8) % Plt Count (150-400) X10^3/uL Neut % (Auto) (50-75) % Lymph % (Auto) (25-40) % Candler % (Auto) (3-14) % Eos % (Auto) (2-4) % Baso % (Auto) (0-2) % Neut # (Auto) (6427-5208) /uL Lymph # (Auto) (9618-4930) /uL Candler # (Auto) (0-900) /uL Eos # (Auto) (0-450) /uL Baso # (Auto) (0-100) /uL PT (10.1-12.7) SECONDS INR (0.9-1.3) APTT (26.4-36.2) SECONDS ABG pH 7.24 L* (7.35-7.45) ABG pCO2 56.5 H (35-45) mmHg ABG pO2 124 H (80-100) mmHg ABG HCO3 24 (22-26) mmol/L ABG Total CO2 26 (21-31) mmol/L ABG O2 Saturation 98 (95-100) % ABG Base Excess -4.0 L (-2-2) mmol/L FiO2 100 Sodium 138 138 (137-145) mmol/L Potassium 6.0 H D 5.0 (3.4-5.1) mmol/L Chloride 106 111 H (98-107) mmol/L Carbon Dioxide 25 26 (22-32) mmol/L BUN 48 H 41 H (9-20) mg/dL Creatinine 1.78 H 1.49 H (0.66-1.25) mg/dL Estimated GFR 41.0 L 50.3 L (>60) mL/min BUN/Creatinine Ratio 27.0 H 27.5 H (6-22) Glucose 147 H 123 H (70-100) mg/dL Lactate (0.7-2.1) mmol/L Calcium 7.9 L 7.8 L (8.4-10.2) mg/dL Total Bilirubin (0.2-1.3) mg/dL AST (17-59) IU/L ALT (<50) IU/L Alkaline Phosphatase (38-126) U/L Ammonia (9-30) umol/L Total Creatine Kinase Cancelled (55-170) U/L CK-MB (CK-2) (<2.37) ng/mL CK-MB (CK-2) Rel Index (1.5-5.0) % Troponin I (0.01-0.034) ng/mL NT-Pro-B Natriuret Pep (<125) pg/mL Total Protein (6.3-8.2) g/dL Albumin (3.5-5.0) g/dL Globulin (1.7-4.1) g/dL Albumin/Globulin Ratio (1.0-2.8) Procalcitonin (<0.5) ng/mL TSH (0.47-4.68) uIU/mL Prolactin (3.7-17.9) ng/mL Urine Color Urine Appearance Urine pH (4.5-8.0) Ur Specific [place] (1.000-1.035) Urine Protein (Negative) Urine Glucose (UA) (Negative) g/dL Urine Ketones (NEGATIVE) Urine Occult Blood (Negative) Urine Nitrate (Negative) Urine Bilirubin (NEGATIVE) Urine Urobilinogen (0.2) E.U./dL Ur Leukocyte Esterase (NEGATIVE) Urine RBC (0-5/HPF) Urine WBC (0-5/HPF) Ur Squamous Epith Cells (0-5/HPF) Amorphous Sediment Urine Bacteria (None) Urine Mucus (Negative) Ur Culture Indicated? Salicylates (<20) mg/dL U Opiates 300ng/mL cut (Negative) Ur Oxycodone Screen (Negative) Urine Methadone Screen (Negative) Acetaminophen (10-30) ug/mL Ur Barbiturates Screen (Negative) U Tricyclic Antidepress (Negative) Ur Phencyclidine Scrn (Negative) Ur Amphetamines Screen (Negative) U Methamphetamines Scrn (Negative) Ur MDMA Scrn (Ecstasy) (Negative) U Benzodiazepines Scrn (Negative) Urine Cocaine Screen (Negative) U Marijuana (THC) Screen (Negative) Ethyl Alcohol ( - 10) mg/dL SARS-CoV-2 (PCR) (Negative) 04/18/21 04/18/21 04/19/21 Range/Units 20:33 22:26 00:51 WBC (4.5-11.0) X10^3/uL RBC (4.5-5.9) X10^6/uL Hgb (13.5-17.5) g/dL Hct (41-53) % MCV (80-100) fL MCH (26-34) PG MCHC (30-36) % RDW (11.6-14.8) % Plt Count (150-400) X10^3/uL Neut % (Auto) (50-75) % Lymph % (Auto) (25-40) % Candler % (Auto) (3-14) % Eos % (Auto) (2-4) % Baso % (Auto) (0-2) % Neut # (Auto) (0147-6815) /uL Lymph # (Auto) (3264-3311) /uL Candler # (Auto) (0-900) /uL Eos # (Auto) (0-450) /uL Baso # (Auto) (0-100) /uL PT (10.1-12.7) SECONDS INR (0.9-1.3) APTT (26.4-36.2) SECONDS ABG pH 7.22 L* 7.24 L* (7.35-7.45) ABG pCO2 57.4 H 54.5 H (35-45) mmHg ABG pO2 140 H 128 H (80-100) mmHg ABG HCO3 24 24 (22-26) mmol/L ABG Total CO2 25 25 (21-31) mmol/L ABG O2 Saturation 99 98 (95-100) % ABG Base Excess -4.0 L -4.0 L (-2-2) mmol/L FiO2 70 70 Sodium (137-145) mmol/L Potassium (3.4-5.1) mmol/L Chloride (98-107) mmol/L Carbon Dioxide (22-32) mmol/L BUN (9-20) mg/dL Creatinine (0.66-1.25) mg/dL Estimated GFR (>60) mL/min BUN/Creatinine Ratio (6-22) Glucose (70-100) mg/dL Lactate (0.7-2.1) mmol/L Calcium (8.4-10.2) mg/dL Total Bilirubin (0.2-1.3) mg/dL AST (17-59) IU/L ALT (<50) IU/L Alkaline Phosphatase (38-126) U/L Ammonia (9-30) umol/L Total Creatine Kinase 50909 H D (55-170) U/L CK-MB (CK-2) 311.00 H D (<2.37) ng/mL CK-MB (CK-2) Rel Index 0.5 L (1.5-5.0) % Troponin I 0.812 H* (0.01-0.034) ng/mL NT-Pro-B Natriuret Pep (<125) pg/mL Total Protein (6.3-8.2) g/dL Albumin (3.5-5.0) g/dL Globulin (1.7-4.1) g/dL Albumin/Globulin Ratio (1.0-2.8) Procalcitonin (<0.5) ng/mL TSH (0.47-4.68) uIU/mL Prolactin (3.7-17.9) ng/mL Urine Color Urine Appearance Urine pH (4.5-8.0) Ur Specific [place] (1.000-1.035) Urine Protein (Negative) Urine Glucose (UA) (Negative) g/dL Urine Ketones (NEGATIVE) Urine Occult Blood (Negative) Urine Nitrate (Negative) Urine Bilirubin (NEGATIVE) Urine Urobilinogen (0.2) E.U./dL Ur Leukocyte Esterase (NEGATIVE) Urine RBC (0-5/HPF) Urine WBC (0-5/HPF) Ur Squamous Epith Cells (0-5/HPF) Amorphous Sediment Urine Bacteria (None) Urine Mucus (Negative) Ur Culture Indicated? Salicylates (<20) mg/dL U Opiates 300ng/mL cut (Negative) Ur Oxycodone Screen (Negative) Urine Methadone Screen (Negative) Acetaminophen (10-30) ug/mL Ur Barbiturates Screen (Negative) U Tricyclic Antidepress (Negative) Ur Phencyclidine Scrn (Negative) Ur Amphetamines Screen (Negative) U Methamphetamines Scrn (Negative) Ur MDMA Scrn (Ecstasy) (Negative) U Benzodiazepines Scrn (Negative) Urine Cocaine Screen (Negative) U Marijuana (THC) Screen (Negative) Ethyl Alcohol ( - 10) mg/dL SARS-CoV-2 (PCR) (Negative) 04/19/21 Range/Units 02:45 WBC (4.5-11.0) X10^3/uL RBC (4.5-5.9) X10^6/uL Hgb (13.5-17.5) g/dL Hct (41-53) % MCV (80-100) fL MCH (26-34) PG MCHC (30-36) % RDW (11.6-14.8) % Plt Count (150-400) X10^3/uL Neut % (Auto) (50-75) % Lymph % (Auto) (25-40) % Candler % (Auto) (3-14) % Eos % (Auto) (2-4) % Baso % (Auto) (0-2) % Neut # (Auto) (8083-6128) /uL Lymph # (Auto) (6677-7965) /uL Candler # (Auto) (0-900) /uL Eos # (Auto) (0-450) /uL Baso # (Auto) (0-100) /uL PT (10.1-12.7) SECONDS INR (0.9-1.3) APTT (26.4-36.2) SECONDS ABG pH 7.25 L* (7.35-7.45) ABG pCO2 53.7 H (35-45) mmHg ABG pO2 122 H (80-100) mmHg ABG HCO3 24 (22-26) mmol/L ABG Total CO2 25 (21-31) mmol/L ABG O2 Saturation 98 (95-100) % ABG Base Excess -4.0 L (-2-2) mmol/L FiO2 65 Sodium (137-145) mmol/L Potassium (3.4-5.1) mmol/L Chloride (98-107) mmol/L Carbon Dioxide (22-32) mmol/L BUN (9-20) mg/dL Creatinine (0.66-1.25) mg/dL Estimated GFR (>60) mL/min BUN/Creatinine Ratio (6-22) Glucose (70-100) mg/dL Lactate (0.7-2.1) mmol/L Calcium (8.4-10.2) mg/dL Total Bilirubin (0.2-1.3) mg/dL AST (17-59) IU/L ALT (<50) IU/L Alkaline Phosphatase (38-126) U/L Ammonia (9-30) umol/L Total Creatine Kinase (55-170) U/L CK-MB (CK-2) (<2.37) ng/mL CK-MB (CK-2) Rel Index (1.5-5.0) % Troponin I (0.01-0.034) ng/mL NT-Pro-B Natriuret Pep (<125) pg/mL Total Protein (6.3-8.2) g/dL Albumin (3.5-5.0) g/dL Globulin (1.7-4.1) g/dL Albumin/Globulin Ratio (1.0-2.8) Procalcitonin (<0.5) ng/mL TSH (0.47-4.68) uIU/mL Prolactin (3.7-17.9) ng/mL Urine Color Urine Appearance Urine pH (4.5-8.0) Ur Specific [place]idan (1.000-1.035) Urine Protein (Negative) Urine Glucose (UA) (Negative) g/dL Urine Ketones (NEGATIVE) Urine Occult Blood (Negative) Urine Nitrate (Negative) Urine Bilirubin (NEGATIVE) Urine Urobilinogen (0.2) E.U./dL Ur Leukocyte Esterase (NEGATIVE) Urine RBC (0-5/HPF) Urine WBC (0-5/HPF) Ur Squamous Epith Cells (0-5/HPF) Amorphous Sediment Urine Bacteria (None) Urine Mucus (Negative) Ur Culture Indicated? Salicylates (<20) mg/dL U Opiates 300ng/mL cut (Negative) Ur Oxycodone Screen (Negative) Urine Methadone Screen (Negative) Acetaminophen (10-30) ug/mL Ur Barbiturates Screen (Negative) U Tricyclic Antidepress (Negative) Ur Phencyclidine Scrn (Negative) Ur Amphetamines Screen (Negative) U Methamphetamines Scrn (Negative) Ur MDMA Scrn (Ecstasy) (Negative) U Benzodiazepines Scrn (Negative) Urine Cocaine Screen (Negative) U Marijuana (THC) Screen (Negative) Ethyl Alcohol ( - 10) mg/dL SARS-CoV-2 (PCR) (Negative) Point of Care Testing Glucose POC 196 Imaging Data CTA head/neck: Radiologist's Impression: [place] [address] CT Scan Report Signed Patient: Sekou Holt MR#: [id number] : 1970 Acct:[id number] Age/Sex: 50 / M Date of Service: 04/18/21 Loc: ED Accession Number: [id number] ?? Procedure: CT angio head and neck Ordering Provider: Prasanna Mas D.O. PROCEDURE:? CT ANGIO HEAD AND NECK ? INDICATIONS:? AMS, overdose, requested by neuro ? TECHNIQUE:?? ? After the administration of intravenous contrast, 1 mm thick sections acquired from the aortic arch through the [place] of [place].? Post-contrast 4.5 mm thick sections then re-acquired from the foramen magnum to the vertex.? 3-dimensional hqxteyf-xxiixurng-tfptdkxtje (MIP) and/or volume rendering reformats were acquired of the central intracranial vasculature and neck separately. ? COMPARISON:? [facility], CT, CT HEAD/BRAIN WO CON, 04/18/2021, 13:51. ? FINDINGS: ? Image quality:? Diagnostic.? ? BRAIN:? CSF spaces:? Ventricles stable in size and configuration.? Basal cisterns are patent.? No extra-axial fluid collections.? ? ? Brain:? No midline shift.? No intracranial bleeds or masses.? Gudino-white matter interface appears intact.? Redemonstration of heterogeneous, hypodensities involving the bilateral basal ganglia and bilateral cerebellum.? ? Skull and face:? Calvarium and facial bones appear intact, without suspicious lesions.? Orbits appear normal.? ? ? Sinuses:? Sinuses and mastoids are clear.? ? HEAD CT ANGIOGRAPHY:? Anterior circulation:? ? Intracranial internal carotid arteries appear patent without high-grade stenosis. There is flow/opacification within the paired anterior cerebral arteries.? There is opacification within the middle cerebral arteries.? The anterior communicating artery is seen.? No aneurysms are seen. No occlusion.? ? Posterior circulation:? ? Visualized portions of the bilateral vertebral arteries appear patent.? There is a left dominant vertebral artery system.? The distal branch of the right V4 segment is not definitively visualized joining the basilar artery.? This may be congenital in etiology.? No evidence for high-grade stenosis. No occlusions. There is opacification of the posterior cerebral arteries.? No aneurysms are seen.? ? NECK CT ANGIOGRAPHY:? Carotid system:? The great vessels demonstrate a conventional anatomy as they arise from the aortic arch.? ? The origins of the common carotid arteries appear patent.? ? The common carotid arteries appear patent throughout their visualized courses without high grade stenosis. The bifurcation regions are both patent without high grade stenosis. The internal carotid arteries demonstrate normal calibers and courses.? ? Posterior circulation:? ? The origins of the vertebral arteries both appear patent without hemodynamically significant stenosis.? The more superior extracranial portions of both vertebral arteries also demonstrate normal courses and calibers.? They join to form a normal appearing basilar artery. ? ? ? Soft tissues:? Visualized neck soft tissues demonstrate no suspicious abnormalities.? No adenopathy.? There is confluent airspace disease involving the dependent portions of the left lower lobe, likely related to pneumonia or aspiration.? ? Bones:? No suspicious bony lesions.? Visualized cervical spine appears normally aligned.? No acute compression fractures of the vertebral bodies.? ? ? IMPRESSION:? ? 1. Negative CT angiogram of the head. ? 2. Left dominant vertebral artery system with diminutive appearance of the right V4 segment.? A definite communication between the right V4 segment and the basilar artery is not visualized.? This is favored to be congenital in etiology.? Otherwise, negative CT angiogram of the neck. ? 3. Left lower lobe airspace disease/aspiration. ? 4. Redemonstration of ill-defined hypodensities of the bilateral basal ganglia and bilateral cerebellar hemispheres.? Findings may represent sequela of age-indeterminate ischemia/infarction.? Consider MRI for further evaluation of chronicity of these findings.? ? ? Any quantitative measurements of stenosis were performed using NASCET criteria.? ? ? Dictated by: Justo Palmer M.D. on 04/18/2021 at 21:54 ? ? Approved by: Justo Palmer M.D. on 04/18/2021 at 22:08 MDM Narrative Medical decision making narrative: This is a 50-year-old male who was found down in his RV. He did respond to Narcan initially but not with normalization of his mental status. Patient had worsening mentation over time the department. Decision was made to intubate the patient. He has ischemic changes on head CT concerning for possible stroke although polysubstance overdose a with anoxic injury is also possibility. He is in acute renal failure with hyperkalemia and rhabdo. His labs had some improvement with fluids he has been having urine output at about 182 100 mL/hour after a 2 L fluid bolus and continued fluids at approximately 250 cc/hour. Initial lactate was 2.6 and improved to 1.3. His CBC is unremarkable. Patient's has elevation in liver enzymes of AST ALT but no changes to bilirubin. Patient's U tox is positive for multiple substances all some of these are prescribed such as his Adderall. Patient's COVID swab is negative. Patient troponin is positive this may be secondary to hypoxia. He did not have any acute EKG changes appreciated. Discussed with tell industrial organization manager, Neurology at [facility]. We discussed getting CT angiography but based on his renal failure at this time deferred we did discuss if I can speak with Nephrology and they feel comfortable obtaining angiography we can continue down this pathway. We do not have ability to get MRI with an intubated patient. Regional hotline was contacted as there are no beds in the region at this time. Patient is currently sedated with fentanyl drip, propofol drip, occasional Versed. He had additional dose of rec your own a.m. as having significant a synchronous changes with his vent. Also discussed with Nephrology, plan for CT angiography if creatinine and electrolytes including potassium or continue to improve patient continues to have good urine output over the next couple hours. If they stay stable or worsening he does not recommend CTA in that situation. At this time does not feel the bicarb drip is necessary. Patient was signed out to Dr. Mas while awaiting potential transfer to outside facility, follow-up with labs to make final decision about CT angiography. I also spoke with patient's mother who is aware patient's current situation goal at this time to transfer to an outside facility with neurology but that there is no region wide bed availability. Dr mas: Received turned over. Reviewed patient's history and physical. Review patient's labs. Reviewed patient's radiologic studies performed to this point. Dr. Kellogg has had discussions with Neurology and also Nephrology at [facility]/heart review. They did request a CTA of the head and neck. This was performed did not show any acute blockages/vasculitis. Given his uncertain etiology was clinical presentation and potential for IV drug abuse there was concern for endocarditis and potentially embolic events. Blood cultures were obtained x3. Patient was given 2 g vancomycin and 2 g cefepime. Patient did have 1 episode of hypotension with systolic blood pressures in the 60s and mean arterial pressure in the 50s. He was given 1 bolus of a push dose pressor and then started on Levophed. This improved his blood pressure. We attempted to eventually wean him off the Levophed however when it was turned off he did become hypotensive so it was restarted. Last paralytic dose was around 1800 on 04/18/20. Since that time patient has had minimal voluntary movements. At 0300 on06/17/20 the patient was suctioned and did not appear to have a gag or cough. He did not respond to an ABG that was performed. He does have a corneal reflex. Patient has been producing just under 1 milliliter/kilogram per hour of urine. Was continuing to get fluids because of his elevation in his CK. Has had no changes on the EKG or monitor to suggest that his elevation in troponin is related to an acute ST T elevation MA. patient continues to remain somewhat acidotic with a pH is 7.2. Small adjustments in his vent to decrease his pCO2 is shown minor improvements in this. After several hours I did discuss the case with Dr. Joy industrial organization manager at [facility] who accepts the patient in transfer. Patient does require transfer for higher level of care. Patient is currently stable for transport. Critical Care Time <Janny Kellogg, DO - Last Filed: 04/21/21 13:13> Critical Care Time Critical Care Time: Yes Attestation: The high probability of a clinically significant, sudden or life threatening deterioration of the [cardiac, pulm, neuro] system(s) required my full and direct attention, intervention and personal management. The aggregate critical care time was [] minutes. This time is in addition to time spent performing reported procedures but includes the following: [x] Data Review and interpretation [x] Patient assessment and monitoring of vital signs [x] Documentation [x] Medication orders and management <Prasanna Mas, DO - Last Filed: 04/19/21 03:47> Critical Care Time Total Critical Care Time: 120 Attestation: The high probability of a clinically significant, sudden or life threatening deterioration of the [cardiac, pulm, neuro] system(s) required my full and direct attention, intervention and personal management. The aggregate critical care time was 120 minutes. This time is in addition to time spent performing reported procedures but includes the following: [x] Data Review and interpretation [x] Patient assessment and monitoring of vital signs [x] Documentation [x] Medication orders and management Discharge Plan Departure Patient Disposition: [facility] Clinical Impression: Ischemic brain injury, Acute renal failure, Rhabdomyolysis, Acute hyperkalemia, Non-ST elevation MA (NSTEMI) Prescriptions: No Action trazodone 50 mg tablet 100 mg PO BEDTIME PRN (Reason: insomnia) Qty: 180 3RF dextroamphetamine-amphetamine 30 mg tablet 30 mg PO BID Qty: 60 0RF Rx Instructions: administer doses at least 4-6 hours apart propranolol 20 mg tablet 20 mg PO TID Qty: 90 3RF sertraline 100 mg tablet 150 mg PO DAILY Qty: 135 3RF naproxen 500 mg Tablet 500 mg PO BID 0RF tadalafil 10 mg tablet 10 mg PO DAILY PRN (Reason: Erectile Dysfunction) 0RF aripiprazole 10 mg tablet 15 mg PO BEDTIME 0RF Referrals: Matt Jeffries DO [Primary Care Provider] -
[2021-04-18 13:33] LABS: Add Manual Diff / Slide Review NO; Basophils Absolute Auto 0 /uL (0-100); Basophils Percent Auto 0.1 % (0-2); Eosinophils Absolute Auto 0 /uL (0-450); Hematocrit 46.2 % (41-53); Hemoglobin 15.4 g/dL (13.5-17.5); Lymphocytes Absolute Auto 1000 /uL (1100-4500); Mean Corpuscular HGB Conc 33.3 % (30-36); Mean Corpuscular Hemoglobin 30.5 PG (26-34); Mean Corpuscular Volume 91.4 fL (80-100); Monocytes Absolute Auto 1200 /uL (0-900); Monocytes Percent Auto 11.5 % (3-14); Neutrophils Absolute Auto 8500 /uL (1500-7000); Neutrophils Percent Auto 79.4 % (50-75); Platelet Count 292 X10^3/uL (150-400); Red Blood Cell Count 5.05 X10^6/uL (4.5-5.9); Red Cell Distribution Width 13.9 % (11.6-14.8); White Blood Cell Count 10.7 X10^3/uL (4.5-11.0)
[2021-04-18 13:41] LABS: INR 1.1 (0.9-1.3); Prothrombin Time 11.9 SECONDS (10.1-12.7)
[2021-04-18 13:43] LABS: Bilirubin Urine UA NEGATIVE (NEGATIVE); Color Urine UA YELLOW; Glucose Urine UA TRACE g/dL (Negative); Ketones Urine UA NEGATIVE (NEGATIVE); Leukocyte Esterase Urine UA NEGATIVE (NEGATIVE); Nitrite Urine UA NEGATIVE (Negative); Occult Blood Urine UA 3+ (Negative); Protein Urine UA 2+ (Negative); Specific Gravity Urine UA >=1.030 (1.000-1.035); Urobilinogen Urine UA 0.2 E.U./dL (0.2)
[2021-04-18 13:44] LABS: PTT Partial Thromboplastin Tim 33 SECONDS (26.4-36.2)
[2021-04-18] MEDS: SODIUM CHLORIDE 0.9% 1,000 ML 1000 ML IV ×3 (13:45→20:58)
[2021-04-18 13:48] LABS: Lactate (Lactic Acid) 2.6 mmol/L (0.7-2.1)
[2021-04-18 13:50] LABS: Ur Creatinine Normal (Normal); Ur Specific Gravity Normal (Normal); Urine pH Normal (Normal)
[2021-04-18 13:51] LABS: Acetaminophen < 10 ug/mL (10-30); Alanine Aminotransferase 132 IU/L (<50); Albumin Globulin Ratio 1.6 (1.0-2.8); Alkaline Phosphatase 86 U/L (38-126); Aspartate Aminotransferase 321 IU/L (17-59); BUN Creatinine Ratio 18.4 (6-22); Bilirubin Total 0.5 mg/dL (0.2-1.3); Blood Urea Nitrogen 50 mg/dL (9-20); Calcium 8.8 mg/dL (8.4-10.2); Carbon Dioxide 25 mmol/L (22-32); Chloride 97 mmol/L (98-107); Estimated Glomerular Filt Rate 25.1 mL/min (>60); Ethanol (ETOH) < 10 mg/dL; Globulin 3.1 g/dL (1.7-4.1); Glucose 126 mg/dL (70-100); Salicylate < 1.0 mg/dL (<20); Sodium 135 mmol/L (137-145); Total Protein 8.1 g/dL (6.3-8.2)
[2021-04-18 13:52] LABS: UR Morphine/Opiate cutoff 300 Positive (Negative); Urine Amphetamines Positive (Negative); Urine Barbiturates Negative (Negative); Urine Benzodiazepines Positive (Negative); Urine Cocaine Negative (Negative); Urine MDMA Positive (Negative); Urine Methadone Negative (Negative); Urine Methamphetamines Positive (Negative); Urine Oxycodone Negative (Negative); Urine Phencyclidine Negative (Negative); Urine Tetrahydrocannabinol Negative (Negative); Urine Tricyclic Antidepressant Negative (Negative)
[2021-04-18 13:56] LABS: Appearance Urine UA Slightly Cloudy
[2021-04-18 13:57] LABS: Amorphous Sediment Urine 1+; Bacteria Urine None Seen; Culture Indicated Urine Cult Not Indicated; Mucus Urine 1+ (Negative); RBC Urine 1-5/HPF (0-5/HPF); Squamous Epithelial Cell Urine 0-1 /HPF (0-5/HPF); WBC Urine 1-5/HPF (0-5/HPF)
[2021-04-18 14:04] LABS: COVID19 -Nasal RAPID Negative (Negative)
[2021-04-18 14:04] LABS: HEMOLYSIS 21 (0-50)
[2021-04-18 14:08] LABS: Procalcitonin 5.76 ng/mL (<0.5)
[2021-04-18 14:11] LABS: Potassium 7.2 mmol/L (3.4-5.1)
--- NOTE | 2021-04-18 14:13 | DI.CT.S_ITS ---
PROCEDURE: CT HEAD/BRAIN WO CON INDICATIONS: altered mental status, od TECHNIQUE: Noncontrast 4.5 mm thick angled axial sections acquired from the foramen magnum to the vertex, with coronal and sagittal reformats. For radiation dose reduction, the following was used: automated exposure control, adjustment of mA and/or kV according to patient size. COMPARISON: None. FINDINGS: Image quality: Excellent. CSF spaces: Basal cisterns are patent. No extra-axial fluid collections. Ventricles are normal in size and shape. Brain: Several scattered areas of hypodensity throughout the cerebellar hemispheres bilaterally, many of which are fairly well-defined. There may also be hypodensity in the pontine region. Ill-defined hypodensity in the bilateral basal ganglia. No significant mass effect in the cerebral hemispheres. No midline shift. No intracranial masses or hemorrhage. Skull and face: Calvarium and visualized facial bones are intact, without suspicious lesions. Sinuses: Visualized sinuses and mastoids are clear. IMPRESSION: 1. Several areas of hypodensity, potentially ischemia of uncertain age present in the bilateral basal ganglia, throughout the cerebellum, and potentially in the pontine region. Recommend MRI for clarification of chronicity. 2. No evidence of acute hemorrhage. Dictated by: Veronica Sanchez M.D. on 04/18/2021 at 14:28 Approved by: Veronica Sanchez M.D. on 04/18/2021 at 14:32
[2021-04-18 14:18] LABS: Ammonia (NH3) 21 umol/L (9-30)
[2021-04-18 14:21] LABS: Thyroid Stimulating Hormone 0.808 uIU/mL (0.47-4.68)
[2021-04-18 14:27] LABS: Creatine Kinase 28638 U/L (55-170)
[2021-04-18] MEDS: NALOXONE 0.4 MG/ML VIAL 0.2 MG IV (14:28)
[2021-04-18 14:29] LABS: Troponin I 0.353 ng/mL (0.01-0.034)
[2021-04-18 14:31] LABS: Prolactin 20.9 ng/mL (3.7-17.9)
[2021-04-18 14:32] LABS: CKMB % Relative Index 0.5 % (1.5-5.0)
[2021-04-18] MEDS: SODIUM BICARB 8.4% SYRINGE 50 MEQ IV (14:32)
[2021-04-18] MEDS: DEXTROSE 50 % IN WATER 25 GM/50 ML SYRINGE IV (14:32)
[2021-04-18 14:33] LABS: NT-proBNP (BNP-Adult 18+) 399 pg/mL (<125)
[2021-04-18] MEDS: INSULIN REGULAR 100 UNIT/ML 3 ML VIAL 10 UNIT IV (14:33)
--- NOTE | 2021-04-18 15:00 | DI.RAD.S_ITS ---
PROCEDURE: XR CHEST 1V INDICATIONS: post intubation, will call; TECHNIQUE: One view of the chest was acquired. COMPARISON: [facility], CR, XR CHEST 1V, 04/18/2021, 14:47. FINDINGS: Surgical changes and devices: An endotracheal tube is seen, with the tip 4.5 cm above the isreal. Lungs and pleura: Low lung volumes are noted. This causes a crowded appearance to the lung markings and limits evaluation. Mild, streaky opacities are seen at the lung bases. On this supine examination, no large pneumothorax or large pleural effusions are seen. Mediastinum: Mediastinal contours appear normal. Heart size is normal. Bones and chest wall: No suspicious bony lesions. Overlying soft tissues appear unremarkable. A IMPRESSION: The tip of the endotracheal tube is seen 4.5 cm above the isreal. The tip of the gastric tube is seen coiled and overlying the fundus of the stomach. Low lung volumes, with likely atelectasis at the lung bases. Dictated by: Wilfred Plata M.D. on 04/18/2021 at 14:46 Approved by: Wilfred Plata M.D. on 04/18/2021 at 14:47
[2021-04-18] MEDS: KETAMINE 50 MG/5 ML *SYRINGE 105 MG IV (15:08)
[2021-04-18] MEDS: ETOMIDATE 2 MG/ML 10 ML VIAL 10 MG IV (15:08)
[2021-04-18] MEDS: ROCURONIUM 50 MG/5 ML INJ 100 MG IV (15:18)
[2021-04-18] MEDS: propofoL 200 MG/20 ML VIAL 50 MG IV (15:19)
[2021-04-18 15:27] LABS: Reflexed Lactate in 2 Hours Y
[2021-04-18] MEDS: propofoL 1,000 MG/100 ML VIAL 6.314 MG IV (15:30)
--- NOTE | 2021-04-18 15:51 | PC.NURSE ---
+ gastric contents out and + air over abd after insertion. X ray pending
[2021-04-18] MEDS: CALCIUM GLUCONATE 9.3 MEQ in SODIUM CHLORIDE 0.9% 50 ML 140 ML IV (15:55)
--- NOTE | 2021-04-18 15:58 | DI.RAD.S_ITS ---
PROCEDURE: XR CHEST 1V INDICATIONS: Central line placement TECHNIQUE: One view of the chest was acquired. COMPARISON: [facility], CR, XR CHEST 1V, 04/18/2021, 15:27. FINDINGS: Surgical changes and devices: Right IJ central line projects over the cavoatrial junction. Endotracheal tube terminates in the thoracic trachea at the T2 level approximately 6 centimeters above the isreal. Enteric tube is in appropriate position, coiled within the proximal stomach. Lungs and pleura: Atelectatic versus consolidative airspace opacity in the left lung base. Otherwise clear lungs. No pleural effusions or pneumothorax. Mediastinum: Mediastinal contours appear normal. Heart size is normal. Bones and chest wall: No suspicious bony lesions. Overlying soft tissues appear unremarkable. IMPRESSION: Right IJ central line projects over the cavoatrial junction. Remaining support devices appear to be in appropriate position. Dictated by: Bran Martino M.D. on 04/18/2021 at 15:16 Approved by: Bran Martino M.D. on 04/18/2021 at 15:17
[2021-04-18 16:05] LABS: Fractionated Inspired Oxygen 100; HCO3 ABG 26 mmol/L (22-26); Oxygen Saturation ABG 96 % (95-100); PCO2 ABG 72.7 mmHg (35-45); PO2 ABG 111 mmHg (80-100); TCO2 ABG 28 mmol/L (21-31); pH ABG 7.16 (7.35-7.45)
[2021-04-18] MEDS: SODIUM CHLORIDE 0.9% 1,000 ML 75 ML IV (16:11)
[2021-04-18 16:46] LABS: Blood Urea Nitrogen 48 mg/dL (9-20); Calcium 7.9 mg/dL (8.4-10.2); Carbon Dioxide 25 mmol/L (22-32); Chloride 106 mmol/L (98-107); Glucose 147 mg/dL (70-100); Lactate 2HR (Lactic Acid Rflx) 1.3 mmol/L (0.7-2.1); Sodium 138 mmol/L (137-145)
[2021-04-18] MEDS: fentaNYL 100 MCG/2 ML INJ 50 MCG IV (16:46)
[2021-04-18 16:49] LABS: HEMOLYSIS 115 (0-50)
[2021-04-18] MEDS: MIDAZOLAM 5 MG/ML VIAL 10 MG IV (16:53)
[2021-04-18] MEDS: SODIUM CHLORIDE 0.9% 1,000 ML 250 ML IV (16:57)
--- NOTE | 2021-04-18 17:21 | PC.NURSE ---
Spoke w/ employer who states that he worked on Sunday, was supposed to be at work at 6am but didn't show. They were trying to call and text him and they called for a welfare check.
--- NOTE | 2021-04-18 17:24 | PC.NURSE ---
Attempted to call mother listed as next of kin, no answer, unable to leave a message
[2021-04-18] MEDS: fentaNYL 1,000 MCG in DEXTROSE 5% IN WATER 230 ML 26.308 ML IV (17:25)
--- NOTE | 2021-04-18 17:34 | PC.NURSE ---
Mother called back, gained consent for care, updated on pt at this time. Encouraged to call back for update
[2021-04-18 17:37] LABS: HCO3 ABG 24 mmol/L (22-26); Oxygen Saturation ABG 98 % (95-100); PCO2 ABG 56.5 mmHg (35-45); PO2 ABG 124 mmHg (80-100); TCO2 ABG 26 mmol/L (21-31)
[2021-04-18] MEDS: fentaNYL 100 MCG/2 ML INJ IV (17:37)
[2021-04-18 17:38] LABS: Fractionated Inspired Oxygen 100; pH ABG 7.24 (7.35-7.45)
--- NOTE | 2021-04-18 17:57 | PC.NURSE ---
Pt w/o response to stimulation however asyncronus w/ vent despite current sedation. Dr. Kellogg talking to ICU.
[2021-04-18] MEDS: ROCURONIUM 100 MG/10 ML VIAL IV (18:08)
--- NOTE | 2021-04-18 18:15 | CM.SWNOTE ---
[employer] Note [employer] calls Psychiatrist Dr. Bain's office and leaves VM informing him of patient's presentation to ED. MOISES Malhotra
[2021-04-18] MEDS: MIDAZOLAM 5 MG/ML VIAL 10 MG (19:57)
[2021-04-18] MEDS: dexmedeTOMIDine in 0.9 % NaCL 400 MCG/100 ML PLAST..BAG 5.262 MCG IV (20:22)
[2021-04-18] MEDS: SODIUM CHLORIDE 0.9% FLUSH 9 ML, EPINEPHrine 0.1 MG IV (20:56)
[2021-04-18 21:05] LABS: BUN Creatinine Ratio 27.5 (6-22); Blood Urea Nitrogen 41 mg/dL (9-20); Calcium 7.8 mg/dL (8.4-10.2); Carbon Dioxide 26 mmol/L (22-32); Chloride 111 mmol/L (98-107); Estimated Glomerular Filt Rate 50.3 mL/min (>60); Glucose 123 mg/dL (70-100); HEMOLYSIS 20 (0-50); Sodium 138 mmol/L (137-145)
[2021-04-18] MEDS: NOREPINEPHRINE BITARTRATE/D5W 4 MG/250 ML PLAST..BAG 30 MG IV (21:07)
--- NOTE | 2021-04-18 21:10 | DI.CT.S_ITS ---
PROCEDURE: CT ANGIO HEAD AND NECK INDICATIONS: AMS, overdose, requested by neuro TECHNIQUE: After the administration of intravenous contrast, 1 mm thick sections acquired from the aortic arch through the Tobias of [place]. Post-contrast 4.5 mm thick sections then re-acquired from the foramen magnum to the vertex. 3-dimensional ickfabx-hucpmnpgn-lasygmvvtm (MIP) and/or volume rendering reformats were acquired of the central intracranial vasculature and neck separately. COMPARISON: [facility], CT, CT HEAD/BRAIN WO CON, 04/18/2021, 13:51. FINDINGS: Image quality: Diagnostic. BRAIN: CSF spaces: Ventricles stable in size and configuration. Basal cisterns are patent. No extra-axial fluid collections. Brain: No midline shift. No intracranial bleeds or masses. Gudino-white matter interface appears intact. Redemonstration of heterogeneous, hypodensities involving the bilateral basal ganglia and bilateral cerebellum. Skull and face: Calvarium and facial bones appear intact, without suspicious lesions. Orbits appear normal. Sinuses: Sinuses and mastoids are clear. HEAD CT ANGIOGRAPHY: Anterior circulation: Intracranial internal carotid arteries appear patent without high-grade stenosis. There is flow/opacification within the paired anterior cerebral arteries. There is opacification within the middle cerebral arteries. The anterior communicating artery is seen. No aneurysms are seen. No occlusion. Posterior circulation: Visualized portions of the bilateral vertebral arteries appear patent. There is a left dominant vertebral artery system. The distal branch of the right V4 segment is not definitively visualized joining the basilar artery. This may be congenital in etiology. No evidence for high-grade stenosis. No occlusions. There is opacification of the posterior cerebral arteries. No aneurysms are seen. NECK CT ANGIOGRAPHY: Carotid system: The great vessels demonstrate a conventional anatomy as they arise from the aortic arch. The origins of the common carotid arteries appear patent. The common carotid arteries appear patent throughout their visualized courses without high grade stenosis. The bifurcation regions are both patent without high grade stenosis. The internal carotid arteries demonstrate normal calibers and courses. Posterior circulation: The origins of the vertebral arteries both appear patent without hemodynamically significant stenosis. The more superior extracranial portions of both vertebral arteries also demonstrate normal courses and calibers. They join to form a normal appearing basilar artery. Soft tissues: Visualized neck soft tissues demonstrate no suspicious abnormalities. No adenopathy. There is confluent airspace disease involving the dependent portions of the left lower lobe, likely related to pneumonia or aspiration. Bones: No suspicious bony lesions. Visualized cervical spine appears normally aligned. No acute compression fractures of the vertebral bodies. IMPRESSION: 1. Negative CT angiogram of the head. 2. Left dominant vertebral artery system with diminutive appearance of the right V4 segment. A definite communication between the right V4 segment and the basilar artery is not visualized. This is favored to be congenital in etiology. Otherwise, negative CT angiogram of the neck. 3. Left lower lobe airspace disease/aspiration. 4. Redemonstration of ill-defined hypodensities of the bilateral basal ganglia and bilateral cerebellar hemispheres. Findings may represent sequela of age-indeterminate ischemia/infarction. Consider MRI for further evaluation of chronicity of these findings. Any quantitative measurements of stenosis were performed using NASCET criteria. Dictated by: Justo Palmer M.D. on 04/18/2021 at 21:54 Approved by: Justo Palmer M.D. on 04/18/2021 at 22:08
[2021-04-18 21:57] LABS: Creatine Kinase 61774 U/L (55-170)
[2021-04-18 21:58] LABS: Troponin I 0.812 ng/mL (0.01-0.034)
[2021-04-18] MEDS: propofoL 1,000 MG/100 ML VIAL 18.942 MG IV (22:04)
[2021-04-18 22:08] LABS: CKMB % Relative Index 0.5 % (1.5-5.0)
[2021-04-18] MEDS: SODIUM CHLORIDE 0.9% 1,000 ML 200 ML IV (22:19)
[2021-04-18 23:08] LABS: Fractionated Inspired Oxygen 70; HCO3 ABG 24 mmol/L (22-26); Oxygen Saturation ABG 99 % (95-100); PCO2 ABG 57.4 mmHg (35-45); PO2 ABG 140 mmHg (80-100); TCO2 ABG 25 mmol/L (21-31); pH ABG 7.22 (7.35-7.45)
[2021-04-18] MEDS: fentaNYL 1,000 MCG in DEXTROSE 5% IN WATER 230 ML 52.617 ML IV (23:15)
[2021-04-18] MEDS: CEFEPIME 2 GM in SODIUM CHLORIDE 0.9% 100 ML 200 ML IV (23:51)
[2021-04-18] MEDS: VANCOMYCIN 2,000 MG/400 ML PIGGYBACK 200 MG IV (23:53)
[2021-04-19] VITALS (93 sets, daily range): BP systolic 88–104; BP diastolic 50–59; PULSE 83–94; RESP 16–24; TEMP 36.2; O2SAT 94–99
[2021-04-19] MEDS: CHLORHEXIDINE GLUCONATE 15 ML CUP PO (00:24)
[2021-04-19] MEDS: dexmedeTOMIDine in 0.9 % NaCL 400 MCG/100 ML PLAST..BAG 15.785 MCG IV (00:25)
[2021-04-19] MEDS: propofoL 1,000 MG/100 ML VIAL 18.942 MG IV (00:27)
[2021-04-19 01:03] LABS: Fractionated Inspired Oxygen 70; HCO3 ABG 24 mmol/L (22-26); Oxygen Saturation ABG 98 % (95-100); PCO2 ABG 54.5 mmHg (35-45); PO2 ABG 128 mmHg (80-100); TCO2 ABG 25 mmol/L (21-31); pH ABG 7.24 (7.35-7.45)
[2021-04-19] MEDS: SODIUM CHLORIDE 0.9% 1,000 ML 200 ML IV (02:50)
[2021-04-19 03:02] LABS: HCO3 ABG 24 mmol/L (22-26); PCO2 ABG 53.7 mmHg (35-45); PO2 ABG 122 mmHg (80-100); pH ABG 7.25 (7.35-7.45)
[2021-04-19 03:03] LABS: Fractionated Inspired Oxygen 65; Oxygen Saturation ABG 98 % (95-100); TCO2 ABG 25 mmol/L (21-31)
--- NOTE | 2021-04-19 03:29 | PC.NURSE ---
Rec'd report from Maryse Fry RN. Pt intubated and sedated at this time. 7.5 ETT 23@ teeth, currently requiring precedex, propofol, and fentanyl for sedation. Pt has intermittent L arm muscle movement, no cough no gag, pinpoint unresponsive pupils, however corneal reflex is present. HR 80's NSR. pt did have 1 episode of hypotension requiring 10mcg push dose epi, and was placed on levophed gtt titrated per JUN. Call from lab with critical CK of 61,774 and trop 0.8 and pt placed on continuous infusion of NS at 200ml/hr. RT at bedside with ventilator changes. Pt currently on vent settings PRVC 350/24/60/5. 20F OG with +gastric output, 18F cai with 1ml/kg/hr of urine output. BP maintaining at 92/54 (89), 89 NSR, 24 RR, 96% ventilated, 97.1F. Appears comfortable at this time and tolerating vent well.
[2021-04-19] MEDS: fentaNYL 1,000 MCG in DEXTROSE 5% IN WATER 230 ML 26.308 ML IV (04:47)
[2021-04-19] MEDS: propofoL 1,000 MG/100 ML VIAL 15.785 MG IV (05:27)
[2021-04-19] MEDS: dexmedeTOMIDine in 0.9 % NaCL 400 MCG/100 ML PLAST..BAG 18.416 MCG IV (05:28)
== END 2021-04-19 06:05 | disposition short-term general hospital (02) ==
PROVIDERS: Emergency Medicine; Emergency Provider Emergency Medicine; PCP Student in an Organized Health Care Education/Training Program
DX: I67.82 Cerebral ischemia (principal); I21.4 Non-ST elevation (NSTEMI) myocardial infarction; N17.9 Acute kidney failure, unspecified; M62.82 Rhabdomyolysis; E87.5 Hyperkalemia; F17.290 Nicotine dependence, other tobacco product, uncomplicated; Z20.822 Contact with and (suspected) exposure to COVID-19
CPT/HCPCS: 36415; 36556; 36600; 70450; 70496; 70498; 71045; 80048; 80053; 80305; 80320; 80329; 81001; 82140; 82550; 82553; 82805; 82962; 83605; 83880; 84145; 84146; 84443; 84484; 85025; 85610; 85730; 87040; 87635; 93005; 93010; 94799; 96365; 99285; 99291; 99292; C9803; G0480; J0171; J0610; J0692; J1642; J2250; J2310; J2704; J3010; Q9967